=== PATIENT | female | born 1965 | race African-American/Black ===

== ENCOUNTER 2016-12-14 21:12 | Emergency (ER) | payer MEDICARE, OTHER ==
[~2016-12-14] VITALS: Ht 162.6 cm; Wt 49.5 kg
[~2016-12-14 21:12] MED LIST: ADV10050; AMOX1TAB10 PO; ATEN-51; HYDR-3498 PO; LORA-396; TRAM50TA2 PO
[2016-12-14 22:03] VITALS: Ht 162.6 cm; Wt 49.5 kg
[2016-12-14] MEDS ORDERED: ONDANSETRON (ODT) 4 MG TAB ODT STA (23:18)
--- NOTE | 2016-12-14 23:26 | ERD ---
ER Documentation Chief Complaint Date/Time DATE: 12/14/16 TIME: 23:22 Chief Complaint Ear ache and cough x1 week HPI This patient is a 51-year-old female with history of lupus presenting to the emergency department for left ear pain and cough which has been ongoing for 1 week. Additionally the patient got a cut to the outer part of the left ear one day ago. The patient has had some intermittent nausea with vomiting the past 2 days. Patient denies any abdominal pain, diarrhea, constipation, fevers, chills , or other symptoms at this time. ROS All systems reviewed and are negative except as per history of present illness. Medications Home Meds Active Scripts Tramadol HCl (Tramadol HCl) 50 Mg Tablet, 50 MG PO Q6 Y for PAIN, #15 TAB Prov:FARTUN VASQUEZ PA-C 12/15/16 Ciprofloxacin Hcl* (Ciprofloxacin Hcl*) 500 Mg Tablet, 500 MG PO BID, #14 TAB Prov:FARTUN VASQUEZ PA-C 12/15/16 Tramadol HCl (Tramadol HCl) 50 Mg Tablet, 50 MG PO Q4 Y for PAIN, #[address] or operate heavy machinery while taking this medication Prov:CORINA GOLDSTEIN PA-C 09/13/16 Amoxicillin/Potassium Clav (Amox-Clav 875-125 mg Tablet) 875-125 mg Tab, 1 TAB PO BID for 10 Days, #20 TAB Prov:CORINA GOLDSTEIN PA-C 09/13/16 Hydrocodone Bit-Acetaminophen* ([place]*) 5-325 Mg Tab, 1 TAB PO Q6 Y for PAIN, # 7 TAB Prov:DINORA ARCOS 01/05/16 Reported Medications Salmeterol Xinaf/Fluticasone* (Advair 100/50 Diskus*) 1 Inh Inha 12/03/09 Atenolol* (Atenolol*) 25 Mg Tablet 12/03/09 Lorazepam* (Ativan*) 0.5 Mg Tablet 12/03/09 Allergies Allergies: Coded Allergies: aspirin (Verified Allergy, Mild, 12/03/09) Penicillins (Verified Allergy, Unknown, 09/13/16) PMhx/Soc History of Surgery: Yes (left ovary, appendectomy) Hx Neurological Disorder: No Hx Respiratory Disorders: No Hx Cardiac Disorders: No Hx Miscellaneous Medical Probl: Yes (lupus, grave's disease) Hx Alcohol Use: No Hx Substance Use: No Hx Tobacco Use: No Smoking Status: Never smoker FmHx Noncontributory for chief complaint Physical Exam Vitals Vital Signs Date Time Temp Pulse Resp B/P Pulse Ox O2 Delivery O2 Flow Rate FiO2 12/15/16 01:57 98.9 78 20 120/78 98 12/14/16 22:03 97.4 66 24 125/80 98 Physical Exam INITIAL VITAL SIGNS: Reviewed by me. GENERAL: Alert and interactive. No acute distress. The patient had one episode of nonbilious nonbloody vomit during examination. HEAD: Head is normocephalic and atraumatic. EYES: EOMI. No scleral icterus. No conjunctival injection. ENT: Moist mucosa. There is a small superficial laceration to the left external ear. There is crusting and edema to the left external auditory canal. NECK: Supple. Full range of motion. RESPIRATORY: Normal respiratory effort. Clear breath sounds bilaterally. No wheezing, rales, or rhonchi. CV: Regular rate and rhythm. Normal S1 S2. No S3 or S4. No murmurs. ABDOMEN: Soft, non-distended, non-tender. No guarding. No rebound. No masses. EXTREMITIES: No deformity. SKIN: Warm and dry. NEUROLOGIC: Alert and oriented x 4. Speech is normal. Moves all extremities equally. No motor or sensory deficits noted. Results 24 hrs Current Medications Medications (Trade) Dose Ordered Sig/Hector Route PRN Reason Start Time Stop Time Status Last Admin Dose Admin Ondansetron HCl (Zofran Odt) 4 mg ONCE STAT ODT 12/14/16 23:18 12/14/16 23:20 DC 12/14/16 23:44 Ondansetron HCl (Zofran Odt) 4 mg ONCE STAT ODT 12/15/16 00:32 12/15/16 00:35 DC Ondansetron HCl (Zofran Inj) 4 mg ONCE STAT IM 12/15/16 00:33 12/15/16 00:34 DC 12/15/16 00:56 Tramadol HCl (Ultram) 50 mg ONCE ONCE PO 12/15/16 01:30 12/15/16 01:31 DC 12/15/16 01:14 Bacitracin (Bacitracin Oint (Ud)) 1 applic ONCE ONCE TOP 1/25/17 01:30 12/15/16 01:31 DC 12/15/16 01:15 Procedures/MDM EMERGENCY DEPARTMENT COURSE / MEDICAL DECISION MAKING: This is a 51-year-old female who comes to the emergency room secondary to complaints of vomiting, cough, left ear pain. The patient was given p.o. Zofran in the department. On re-evaluation, the patient was feeling improved. The patient tolerated a p.o. fluid challenge. Radiology: Chest x-ray 1 view interpreted by radiologist: PROCEDURE: Chest. CLINICAL INDICATION: Cough. TECHNIQUE: Single frontal view of the chest was obtained. COMPARISON: 01/05/2016. FINDINGS: The cardiac silhouette is within normal limits. The aortic arch is unremarkable. There is no focal consolidation, vascular congestion or pleural effusion. There is no pneumothorax. IMPRESSION: No evidence for active cardiopulmonary disease. The primary diagnosis is vomiting. Secondary diagnosis is otitis externa I have low suspicion for mastoiditis, bronchitis, pneumonia, or other emergencies at this time. Discharge: I have discussed the lab results and diagnostic findings with the patient and answered any questions or concerns. The patient was discharged with a prescription for ciprofloxacin and tramadol. The patient was advised to followup with their PMD in 1-2 days and to return to the Emergency Department if there are any new or worsening symptoms. The patient understood and agreed with the diagnosis, treatment and plan. The patient is stable for discharge at this time. Departure Diagnosis: Primary Impression: Vomiting Additional Impression: Otitis externa Condition: Stable FARTUN VASQUEZ PA-C Dec 14, 2016 23:26
[2016-12-15] MEDS ORDERED: ONDANSETRON (ODT) 4 MG TAB ODT STA (00:32)
[2016-12-15] MEDS ORDERED: ONDANSETRON 4 MG INJ IM STA (00:33)
--- NOTE | 2016-12-15 00:35 | RADRPT ---
PROCEDURE: Chest. CLINICAL INDICATION: Cough. TECHNIQUE: Single frontal view of the chest was obtained. COMPARISON: 01/05/2016. FINDINGS: The cardiac silhouette is within normal limits. The aortic arch is unremarkable. There is no focal consolidation, vascular congestion or pleural effusion. There is no pneumothorax. IMPRESSION: No evidence for active cardiopulmonary disease. .Enrique Mai MD, MD Date Time Electronically viewed and signed by .Enrique Mai MD, on 12/15/2016 00:34 .T/
[2016-12-15] MEDS ORDERED: CIPR500T4 PO (01:09)
[2016-12-15] MEDS ORDERED: TRAM50TA2 PO (01:10)
[2016-12-15] MEDS ORDERED: BACITRACIN 0.9 GM OINT TOP ONE (01:30)
[2016-12-15] MEDS ORDERED: traMADol 50 MG TAB PO ONE (01:30)
[2016-12-15 01:57] VITALS: BP 120/78; PULSE 78; RESP 20; TEMP 98.9
== END 2016-12-15 01:58 | disposition home or self-care (01) ==
LOC: FTE 21:12
DX: R11.10 Vomiting, unspecified (principal); H60.92 Unspecified otitis externa, left ear; S01.312A Laceration without foreign body of left ear, initial encounter; X58.XXXA Exposure to other specified factors, initial encounter; Y92.9 Unspecified place or not applicable
CPT/HCPCS: 71010; J2405; Z7610; 96372

== ENCOUNTER 2017-02-11 22:08 | Inpatient (IN) | payer OTHER ==
[~2017-02-11] VITALS: Ht 165.1 cm; Wt 44.1 kg
[~2017-02-11 22:08] MED LIST changes: +CIPR500T4 PO
[2017-02-11 22:40] VITALS: BP 132/98; PULSE 82; RESP 18
[2017-02-11 22:44] VITALS: Ht 165.1 cm; Wt 44.1 kg
[2017-02-12] MEDS ORDERED: hydrALAzine 20 MG INJ IV PRN
[2017-02-12] MEDS ORDERED: METOCLOPRAMIDE 10 MG INJ IV PRN
[2017-02-12] MEDS ORDERED: TEMAZEPAM 15 MG CAP PO PRN
[2017-02-12] MEDS: HYDROmorphONE 1 MG/ML SYG IV PRN ×4 (00:14→16:08)
[2017-02-12] MEDS: DEXTROSE 5%-0.45% NACL 1,000 ML IV SCH ×3 (00:16→21:48)
[2017-02-12 04:56] LABS: ADD SCAN DIFF NO
[2017-02-12 05:03] LABS: BASOPHILS % 0.2 % (0.0-2.0); EOSINOPHILS % 0.1 % (0.0-7.0); HEMATOCRIT 39.3 % (37.0-47.0); HEMOGLOBIN 13.4 g/dl (12.0-16.0); LYMPHOCYTES # 1.7 10^3/ul (0.8-2.9); LYMPHOCYTES % 17.7 % (15.0-51.0); MEAN CORPUSCULAR HEMOGLOBIN 28.1 pg (29.0-33.0); MEAN CORPUSCULAR HGB CONC 34.1 g/dl (32.0-37.0); MEAN CORPUSCULAR VOLUME 82.4 fl (82.0-101.0); MEAN PLATELET VOLUME 9.5 fl (7.4-10.4); MONOCYTES % 10.6 % (0.0-11.0); NEUTROPHIL # 6.8 10^3/ul (1.6-7.5); PLATELET COUNT 447 10^3/UL (140-415); RED BLOOD COUNT 4.77 10^6/ul (4.20-5.40); RED CELL DISTRIBUTION WIDTH 12.5 % (11.5-14.5); WHITE BLOOD COUNT 9.6 10^3/ul (4.8-10.8)
[2017-02-12 05:24] LABS: POTASSIUM 3.2 mmol/L (3.5-5.1)
[2017-02-12 05:27] LABS: CREATININE 0.51 mg/dl (0.44-1.00)
[2017-02-12 05:28] LABS: CALCIUM 9.5 mg/dl (8.4-10.2)
[2017-02-12] MEDS: PANTOPRAZOLE (EC) 40 MG TAB PO SCH (05:30)
[2017-02-12] MEDS ORDERED: PRED10TA PO (05:41)
[2017-02-12] MEDS ORDERED: HYDR8TAB25 PO (05:41)
[2017-02-12 07:00] VITALS: BP 171/94; RESP 20
[2017-02-12 09:00] VITALS: BP 140/70; PULSE 88
[2017-02-12] MEDS ORDERED: HYDROmorphONE 1 MG/ML SYG IV STA ×3 (10:53→19:03)
--- NOTE | 2017-02-12 11:16 | HP ---
Date/Time of Note Date/Time of Note DATE: 02/12/17 TIME: 11:08 Assessment/Plan VTE Prophylaxis VTE Prophylaxis Intervention: SCD's Lines/Catheters IV [facility]from [facility] [place] Urinary Cath still in place: No Assessment/Plan Chief Complaint/Hosp Course 1. Systemic Lupus, exacerbation 2. Noncompliance 3. Chronic pain 4. Insomnia Problems: Assessment/Plan 1. Hydration 2. DVT prophylaxis. 3. Steroids 4. PAin control HPI/ROS Admit Date/Time Admit Date/Time Feb 11, 2017 at 22:08 Hx of Present Illness 51 years old female, has history of lupus, was transfered from [facility] for lupus exacerbation. She is non compliant for her medications ROS Constitutional: fatigue, nausea, poor po Eyes: no complaints ENT: no complaints Respiratory: no complaints Cardiovascular: no complaints Gastrointestinal: decreased appetite, nausea Genitourinary: no complaints Musculoskeletal: bone/joint pain Skin: bruising Neurologic: dizziness, headache Endocrine: dry skin, no complaints Lymphatic: no complaints Psychological: depression PMH/Family/Social Past Medical History Medical History: other (lupus) Past Surgical History Past Surgical Hx: no surgical history Family History Significant Family History: no pertinent family hx Social History Alcohol Use: none Smoking Status: Never smoker Drug Use: none Exam/Review of Systems Vital Signs Vitals Vital Signs Date Time Temp Pulse Resp B/P Pulse Ox O2 Delivery O2 Flow Rate FiO2 02/12/17 07:00 98.7 53 20 171/94 98 02/11/17 22:40 Room Air Intake and Output 02/11/17 02/11/17 02/12/17 15:00 23:00 07:00 Intake Total 590 ml Output Total 700 ml Balance -110 ml Exam Constitutional: alert, distress, oriented Psych: no complaints Head: normocephalic Eyes: nl conjunctiva ENMT: nl external ears & nose Neck: supple Respiratory: clear to auscultation Cardiovascular: regular rate and rhythm Gastrointestinal: tender Musculoskeletal: muscle weakness, swelling Extremities: normal pulses Neurological: BINGO USHER II-XII intact Skin: nl turgor Lymph: nl lymph nodes Labs Result Diagram: 02/12/17 0439 02/12/17 0439 Medications Medications Current Medications Enoxaparin Sodium (Lovenox) 40 mg DAILY SC ; Start 02/12/17 at 09:00 Methylprednisolone Sodium Succinate (Solu-Medrol) 40 mg DAILY IV ; Start at 09:00 Amlodipine Besylate (Norvasc) 5 mg DAILY PO ; Start 02/12/17 at 09:00 Pantoprazole 40 mg 40 mg DAILY@06 PO Last administered on 02/12/17 05:30; Admin Dose 40 MG; Start 02/12/17 at 06:00 Dextrose/Sodium Chloride (D5-1/2ns) 1,000 ml @ 75 mls/hr [id number] IV Last administered on 02/12/17 00:16; Admin Dose 75 MLS/HR; Start 02/12/17 at 00:00 Ondansetron HCl (Zofran Inj) 4 mg Q6H PRN IV NAUSEA AND/OR VOMITING; Start at 00:00 Clonidine (Catapres) 0.1 mg Q6H PRN PO for SBP>160; Start 02/12/17 at 00:00 Temazepam (Restoril) 15 mg HS PRN PO SLEEP; Start 02/12/17 at 00:00 Metoclopramide HCl (Reglan) 5 mg Q6H PRN IV NAUSEA AND VOMITING; Start at 00:00 Hydralazine HCl (Apresoline) 10 mg Q6H PRN IV SBP>150 AND DBP>90; Start at 00:00 Hydromorphone HCl (Dilaudid) 1 mg Q3H PRN IV PAIN; Start 02/12/17 at 14:00 Procedures Procedures none SHAGGY ALVAREZ 25, 2017 11:16
[2017-02-12] MEDS: METHYLPREDNISOLONE 40 MG INJ IV SCH (11:25)
[2017-02-12] MEDS: AMLODIPINE 5 MG TAB PO SCH (11:25)
[2017-02-12] MEDS: ENOXAPARIN 40 MG/0.4 ML SYG SC SCH (11:30)
[2017-02-12] MEDS ORDERED: HYDROmorphONE 1 MG/ML SYG IV PRN (14:00)
[2017-02-12] MEDS ORDERED: HYDROCODONE/APAP (5/325) TAB PO PRN (16:30)
[2017-02-12] MEDS ORDERED: POTASSIUM CHLORIDE 250 ML IVPB ONE (17:30)
[2017-02-12 18:00] VITALS: BP 117/84; RESP 18
[2017-02-12] MEDS ORDERED: HYDROmorphONE 1 MG/ML SYG IM STA (18:26)
[2017-02-12] MEDS ORDERED: HYDROmorphONE 4 MG TAB PO SCH (21:00)
[2017-02-12] MEDS ORDERED: IBUPROFEN 600 MG TAB PO SCH (21:00)
[2017-02-12] MEDS: HYDROmorphONE 2 MG/ML SYG IV PRN (21:48)
[2017-02-13] MEDS: HYDROmorphONE 2 MG/ML SYG IV PRN ×7 (00:54→21:11)
[2017-02-13 05:01] LABS: ADD SCAN DIFF NO
[2017-02-13] MEDS: PANTOPRAZOLE (EC) 40 MG TAB PO SCH (05:08)
[2017-02-13 05:14] LABS: POTASSIUM 4.1 mmol/L (3.5-5.1)
[2017-02-13 05:16] LABS: BASOPHILS % 0.1 % (0.0-2.0); CREATININE 0.5 mg/dl (0.44-1.00); EOSINOPHILS % 0.3 % (0.0-7.0); HEMATOCRIT 36.1 % (37.0-47.0); HEMOGLOBIN 12.3 g/dl (12.0-16.0); LYMPHOCYTES # 3.4 10^3/ul (0.8-2.9); LYMPHOCYTES % 35.2 % (15.0-51.0); MEAN CORPUSCULAR HEMOGLOBIN 28.2 pg (29.0-33.0); MEAN CORPUSCULAR HGB CONC 34.1 g/dl (32.0-37.0); MEAN CORPUSCULAR VOLUME 82.8 fl (82.0-101.0); MEAN PLATELET VOLUME 9.4 fl (7.4-10.4); MONOCYTE # 1.1 10^3/ul (0.3-0.9); MONOCYTES % 10.8 % (0.0-11.0); NEUTROPHIL # 5.2 10^3/ul (1.6-7.5); NEUTROPHILS % 53.4 % (39.0-77.0); PLATELET COUNT 387 10^3/UL (140-415); RED BLOOD COUNT 4.36 10^6/ul (4.20-5.40); RED CELL DISTRIBUTION WIDTH 12.4 % (11.5-14.5); WHITE BLOOD COUNT 9.7 10^3/ul (4.8-10.8)
[2017-02-13 05:17] LABS: CALCIUM 9.3 mg/dl (8.4-10.2)
[2017-02-13 08:07] VITALS: BP 135/92; RESP 20
[2017-02-13] MEDS: METHYLPREDNISOLONE 40 MG INJ IV SCH (10:21)
[2017-02-13] MEDS: AMLODIPINE 5 MG TAB PO SCH (10:23)
[2017-02-13] MEDS: ENOXAPARIN 40 MG/0.4 ML SYG SC SCH (10:24)
[2017-02-13] MEDS: DEXTROSE 5%-0.45% NACL 1,000 ML IV SCH (10:30)
--- NOTE | 2017-02-13 16:39 | PN ---
Date/Time of Note Date/Time of Note DATE: 02/13/17 TIME: 16:38 Assessment/Plan VTE Prophylaxis VTE Prophylaxis Intervention: other Lines/Catheters IV Catheter Type (from Nrsg): Peripheral IV Urinary Cath still in place: No Assessment/Plan Chief Complaint/Hosp Course 1. Systemic Lupus, exacerbation 2. Noncompliance 3. Chronic pain 4. Insomnia Problems: PAIN MED PT OT Problems: Subjective 24 Hr Interval Summary Subjective hx not possible: other (PAIN IS BETTER) Cardiovascular: no complaints Gastrointestinal: no complaints Exam/Review of Systems Vital Signs Vitals Vital Signs Date Time Temp Pulse Resp B/P Pulse Ox O2 Delivery O2 Flow Rate FiO2 02/13/17 08:07 98.4 60 20 135/92 98 02/11/17 22:40 Room Air Intake and Output 02/12/17 02/12/17 02/13/17 15:00 23:00 07:00 Intake Total 1660 ml 1145 ml Balance 1660 ml 1145 ml Exam Respiratory: clear to auscultation Cardiovascular: regular rate and rhythm Gastrointestinal: soft Musculoskeletal: nl extremities to inspection Results Result Diagram: 02/13/17 0435 02/13/17 0435 Results 24 hrs Laboratory Tests Test 02/13/17 04:35 White Blood Count 9.7 Red Blood Count 4.36 Hemoglobin 12.3 Hematocrit 36.1 L Mean Corpuscular Volume 82.8 Mean Corpuscular Hemoglobin 28.2 L Mean Corpuscular Hemoglobin Concent 34.1 Red Cell Distribution Width 12.4 Platelet Count 387 Mean Platelet Volume 9.4 Neutrophils % 53.4 Lymphocytes % 35.2 Monocytes % 10.8 Eosinophils % 0.3 Basophils % 0.1 Nucleated Red Blood Cells % 0.0 Neutrophils # 5.2 Lymphocytes # 3.4 H Monocytes # 1.1 H Eosinophils # 0.0 Basophils # 0.0 Nucleated Red Blood Cells # 0.0 Sodium Level 130 L Potassium Level 4.1 Chloride Level 97 Carbon Dioxide Level 26 Anion Gap 11 Blood Urea Nitrogen 9 Creatinine 0.50 Glucose Level 116 Calcium Level 9.3 Medications Medications Current Medications Enoxaparin Sodium (Lovenox) 40 mg DAILY SC Last administered on 02/13/17 10:24 ; Admin Dose 40 MG; Start 02/12/17 at 09:00 Methylprednisolone Sodium Succinate (Solu-Medrol) 40 mg DAILY IV Last administered on 02/13/17 10:21; Admin Dose 40 MG; Start 02/12/17 at 09:00 Amlodipine Besylate (Norvasc) 5 mg DAILY PO Last administered on 02/13/17 10: 23; Admin Dose 5 MG; Start 02/12/17 at 09:00 Pantoprazole 40 mg 40 mg DAILY@06 PO Last administered on 02/13/17 05:08; Admin Dose 40 MG; Start 02/12/17 at 06:00 Dextrose/Sodium Chloride (D5-1/2ns) 1,000 ml @ 75 mls/hr [id number] IV Last administered on 02/13/17 10:30; Admin Dose 75 MLS/HR; Start 02/12/17 at 00:00 Ondansetron HCl (Zofran Inj) 4 mg Q6H PRN IV NAUSEA AND/OR VOMITING; Start at 00:00 Clonidine (Catapres) 0.1 mg Q6H PRN PO for SBP>160; Start 02/12/17 at 00:00 Temazepam (Restoril) 15 mg HS PRN PO SLEEP; Start 02/12/17 at 00:00 Metoclopramide HCl (Reglan) 5 mg Q6H PRN IV NAUSEA AND VOMITING; Start at 00:00 Hydralazine HCl (Apresoline) 10 mg Q6H PRN IV SBP>150 AND DBP>90; Start at 00:00 Acetaminophen/ Hydrocodone Bitart ([place] (5/325)) 1 tab Q4H PRN PO PAIN LEVEL 1 -5; Start 02/12/17 at 16:30 Hydromorphone HCl (Dilaudid) 1.5 mg Q3 PRN IV PAIN Last administered on 14:34; Admin Dose 1.5 MG; Start 02/12/17 at 22:00 Hydromorphone HCl (Dilaudid) 4 mg Q8 PO ; Start 02/13/17 at 22:00 LAKIA SEYMOUR MD Feb 13, 2017 16:39
[2017-02-13] MEDS: SOD CHLORIDE 0.9% 1,000 ML IV SCH (20:17)
[2017-02-13 20:20] VITALS: BP 100/77; RESP 16
[2017-02-13] MEDS: HYDROmorphONE 4 MG TAB PO SCH (21:59)
[2017-02-14] MEDS: HYDROmorphONE 2 MG/ML SYG IV PRN ×7 (00:42→22:09)
[2017-02-14] MEDS: PANTOPRAZOLE (EC) 40 MG TAB PO SCH (05:44)
[2017-02-14] MEDS: HYDROmorphONE 4 MG TAB PO SCH ×3 (05:44→22:06)
[2017-02-14 07:50] VITALS: BP 102/87; RESP 19
[2017-02-14] MEDS: AMLODIPINE 5 MG TAB PO SCH (08:00)
[2017-02-14] MEDS: ENOXAPARIN 40 MG/0.4 ML SYG SC SCH (08:06)
[2017-02-14] MEDS: METHYLPREDNISOLONE 40 MG INJ IV SCH (08:08)
--- NOTE | 2017-02-14 18:48 | PN ---
Date/Time of Note Date/Time of Note DATE: 02/14/17 TIME: 18:47 Assessment/Plan VTE Prophylaxis VTE Prophylaxis Intervention: other Lines/Catheters IV Catheter Type (from Nrsg): Peripheral IV Urinary Cath still in place: No Assessment/Plan Chief Complaint/Hosp Course 1. Systemic Lupus, hx 2. Noncompliance 3. Chronic pain 4. Insomnia Problems: PAIN MED PT OT snf Problems: Subjective 24 Hr Interval Summary Subjective hx not possible: pt critical (khphosis), other (weakness) Exam/Review of Systems Vital Signs Vitals Vital Signs Date Time Temp Pulse Resp B/P Pulse Ox O2 Delivery O2 Flow Rate FiO2 02/14/17 07:50 97.8 69 19 102/87 99 02/11/17 22:40 Room Air Intake and Output 02/13/17 02/13/17 02/14/17 15:00 23:00 07:00 Intake Total 525 ml 2050 ml 1060 ml Output Total 650 ml 450 ml Balance 525 ml 1400 ml 610 ml Exam Respiratory: clear to auscultation Cardiovascular: regular rate and rhythm Gastrointestinal: soft Musculoskeletal: muscle weakness, range of motion (pain), spine non-tender Results Result Diagram: 02/13/17 0435 02/13/17 0435 Medications Medications Current Medications Enoxaparin Sodium (Lovenox) 40 mg DAILY SC Last administered on 02/14/17 08:06 ; Admin Dose 40 MG; Start 02/12/17 at 09:00 Methylprednisolone Sodium Succinate (Solu-Medrol) 40 mg DAILY IV Last administered on 02/14/17 08:08; Admin Dose 40 MG; Start 02/12/17 at 09:00 Amlodipine Besylate (Norvasc) 5 mg DAILY PO Last administered on 02/14/17 08: 00; Admin Dose 5 MG; Start 02/12/17 at 09:00 Pantoprazole (Protonix Tab) 40 mg DAILY@06 PO Last administered on 02/14/17 05 :44; Admin Dose 40 MG; Start 02/12/17 at 06:00 Ondansetron HCl (Zofran Inj) 4 mg Q6H PRN IV NAUSEA AND/OR VOMITING; Start at 00:00 Clonidine (Catapres) 0.1 mg Q6H PRN PO for SBP>160; Start 02/12/17 at 00:00 Temazepam (Restoril) 15 mg HS PRN PO SLEEP; Start 02/12/17 at 00:00 Metoclopramide HCl (Reglan) 5 mg Q6H PRN IV NAUSEA AND VOMITING Last administered on 02/13/17 18:07; Admin Dose 5 MG; Start 02/12/17 at 00:00 Hydralazine HCl (Apresoline) 10 mg Q6H PRN IV SBP>150 AND DBP>90; Start at 00:00 Acetaminophen/ Hydrocodone Bitart ([place] (5/325)) 1 tab Q4H PRN PO PAIN LEVEL 1 -5; Start 02/12/17 at 16:30 Hydromorphone HCl (Dilaudid) 1.5 mg Q3 PRN IV PAIN Last administered on 15:16; Admin Dose 1.5 MG; Start 02/12/17 at 22:00 Hydromorphone HCl 4 mg 4 mg Q8 PO Last administered on 02/14/17 13:54; Admin Dose 4 MG; Start 02/13/17 at 22:00 Sodium Chloride (NS) 1,000 ml @ 50 mls/hr Q20H IV Last administered on 20:17; Admin Dose 20 MLS/HR; Start 02/13/17 at 20:00 LAKIA SEYMOUR MD Feb 14, 2017 18:48
[2017-02-14] MEDS: ONDANSETRON 4 MG INJ IV PRN (18:50)
[2017-02-14 19:42] VITALS: BP 99/71; RESP 18
[2017-02-14] MEDS: SOD CHLORIDE 0.9% 1,000 ML IV SCH (20:00)
[2017-02-14 20:18] LABS: C-REACTIVE PROTEIN < 0.5 mg/dl (0.0-0.9)
[2017-02-14 22:36] LABS: COMPLEMENT C3 92 mg/dl (88-165)
[2017-02-14 22:37] LABS: COMPLEMENT C4 18 mg/dl (14-44)
[2017-02-15] MEDS: HYDROmorphONE 2 MG/ML SYG IV PRN ×7 (01:32→23:18)
[2017-02-15] MEDS: HYDROmorphONE 4 MG TAB PO SCH ×3 (06:21→21:40)
[2017-02-15] MEDS: PANTOPRAZOLE (EC) 40 MG TAB PO SCH (06:21)
[2017-02-15 06:52] LABS: ALBUMIN 3.5 g/dl (3.3-4.9); POTASSIUM 3.9 mmol/L (3.5-5.1)
[2017-02-15 06:54] LABS: CREATININE 0.52 mg/dl (0.44-1.00)
[2017-02-15 06:55] LABS: ALBUMIN/GLOBULIN RATIO 1.2; BILIRUBIN,INDIRECT 0.1 mg/dl (0-1.1); BILIRUBIN,TOTAL 0.1 mg/dl (0.2-1.3); TOTAL PROTEIN 6.4 g/dl (6.1-8.1)
[2017-02-15] MEDS: METHYLPREDNISOLONE 40 MG INJ IV SCH (08:01)
[2017-02-15] MEDS: AMLODIPINE 5 MG TAB PO SCH (08:02)
[2017-02-15] MEDS: ENOXAPARIN 40 MG/0.4 ML SYG SC SCH (08:04)
[2017-02-15 08:47] VITALS: BP 105/72; RESP 16
[2017-02-15] MEDS: oxyCODONE 5 MG TAB PO SCH ×2 (09:59→20:30)
[2017-02-15] MEDS: SOD CHLORIDE 0.9% 1,000 ML IV SCH (09:59)
--- NOTE | 2017-02-15 11:40 | CONS ---
DATE OF ADMISSION: 02/11/2017 DATE OF CONSULTATION: 02/15/2017 REFERRING PHYSICIAN: Yoan Qiu MD HISTORY OF PRESENT ILLNESS: This is a 51-year-old female who has a history of systemic lupus and ch ronic pain syndrome. According to her medical records, she is noncompliant with her medications, al though she tells me she ran out of her medications approximately 1 week prior to this hospitalizatio n. Her pain accelerated so much so that she was unable to tolerate it. She is a poor historian and to the best of her knowledge, she has not had any secondary side effects from the lupus and primari ly has joint discomfort associate with it. She described extreme pain in her lumbosacral spine, claudine ateral hands without radiation. It is associated with morning stiffness, describes as a lancinating and a throbbing type discomfort in both her bilateral wrists. There is no past medical history o f drug, smoking, family history of serious major medical problems. States that the Dilaudid has wor ked well for her in the past in the existing dosage, which is 8 mg 3 times a day. She is being seen by a pain management physician in the community, but has not seen him since her medical insurance h as changed. Secondary pain is lumbosacral spine discomfort which she describes as a pinching type o f discomfort, lancinating into her right lower extremity. States that her right foot is numb. Ther e is no past medical history of trauma associated with it. Radiations are as above. The Dilaudid d oes alleviate her discomfort for an extended period of time. That medication was also prescribed to her by her pain management doctor in the community. Once again, there is no history of drug use, a buse. She has carried a diagnosis of lupus for many, many years prior to this hospitalization. In reviewing her medical record, her pain is under good control when she receives steroids upon admissi on and she has been started off on Solu-Medrol. MEDICATIONS: Please refer to reconciliation sheets. ALLERGIES: 1. PENICILLIN. 2. ASPIRIN. SOCIAL HISTORY: According to medical records, she is a nonsmoker, nondrinker. FAMILY HISTORY: Nonpertinent to this hospitalization. REVIEW OF SYSTEMS: A 12-point review of systems otherwise unremarkable except which is as per histo ry of present illness. PHYSICAL EXAMINATION: GENERAL: Shows an uncomfortable-appearing female who is moaning and groaning. VITAL SIGNS: Blood pressure 99/71, pulse of 64 and regular, respirations of 18, temperature of 98.6 degrees, 94% saturation on room air. HEENT: She is normocephalic and atraumatic. Anicteric, acyanotic. CHEST: Left lung is clear. Right lung basilar crackles. COR: S1, S2, without S3, S4, murmur, gallop, rub. Normal rate, normal rhythm on examination. ABDOMEN: Grossly benign. NEUROLOGIC: Nonfocal. LABORATORY DATA: White blood cell count on 02/13/2017 of 9.7, hemoglobin level of 12.3, hematocrit of 36.1, MCV of 82.8, platelet count of 387,000. Chemistries: Serum sodium 129, potassium 3.9, chl oride 94, bicarbonate 27, BUN 11, creatinine 0.52. There is no new chest x-ray which have been ordered. ASSESSMENT AND PLAN: This lady who has systemic lupus, who ran out of her medications approximately 1 week prior to this hospitalization. She has been treated with pulse doses of corticosteroids. S he is on a Dilaudid 4 mg q.8h. I will stop the [place]. There is a high incidence of tolerance to th is medication as an outpatient and she is going to require long-term pain control. It is difficult to prescribe a short-acting Dilaudid that she is receiving right now as this has a short half life a nd is being prescribed right now at q.8h, although I suspect there was no other alternative due to [facility] insurance issues as an outpatient. Therefore, I think that this was the only option. I will begin her on a long-acting opioid consisting of OxyContin at low dose. I will explain to her the ri sks and the possible side effects associated with this medication. She will need to have close foll owup by her primary care, pain management doctor in the community. Her medical records will be sent with her upon discharge. Dictated By: SAVANNAH TRINH MD, LP/OPAL Conf#: [id number] DID#: [id number]
[2017-02-15] MEDS: ONDANSETRON 4 MG INJ IV PRN (14:26)
--- NOTE | 2017-02-15 14:39 | CONS ---
DATE OF ADMISSION: 02/11/2017 DATE OF CONSULTATION: RHEUMATOLOGY CONSULTATION HISTORY OF PRESENT ILLNESS: The patient is a 51-year-old woman with an apparent hi story of systemic lupus as well as chronic pain. The patient is a very poor historian. Apparently, she has been on chronic prednisone at about 10 mg daily per day as well as narcotic pain medication s for various pains. She describes that the lupus manifested primarily as discoid rash lesions, but she also has had diffuse aches; unclear if actual joint swelling. Denies renal involvement or othe r major organ involvement. The patient apparently stopped her medications about a week prior to adm ission. She apparently lost them and she has had increased diffuse myalgias and possible muscle wea kness. She complains primarily of low back pain. She feels she is unable to stand up erect due to the low back pain. She may have some numbness radiating down the left leg as well. Again, the maria t ent is a poor historian. Apparently, she feels better with the prednisone. She has a history of ph otosensitivity, some alopecia and chronic fatigue. MEDICATIONS: Prior to admission unclear. At present, on several days of Solu-Medrol 40 mg daily as well as narcotic medication. The patient is feeling overall better, but continues to have pain or general weakness in the lower back. ALLERGIES: 1. PENICILLIN. 2. ASPIRIN. SOCIAL HISTORY: The patient denies illicit drug use, denies smoking, denies alcohol use. REVIEW OF SYSTEMS: Negative for chest pain or shortness of breath or palpitations. At present, she has some diffuse abdominal aches. Denies dysuria or increased frequency. Denies fever. Denies he adaches. PAST MEDICAL HISTORY: 1. Positive for lupus per patient. 2. Chronic pain. 3. History of Graves disease. She states that her thyroid has been normal lately, but she has a go iter. PHYSICAL EXAMINATION: GENERAL: Well-developed, thin woman in no acute distress, alert, appears somewhat confused. SKIN: With multiple scaly, nonerythematous patches at the legs and scalp and several at the forearm s. HEENT: Without acute lesions. NECK: Possible thyromegaly; no lymphadenopathy noted. CHEST: Clear to A and P. HEART: Regular rate and rhythm without gallops or murmurs noted. ABDOMEN: Diffusely mildly tender. No rebound tenderness. No masses. EXTREMITIES: Joints without synovitis. Mild tenderness at the lower back; otherwise without defini te tenderness. NEUROLOGIC: With good proximal and distal muscle strength. Sensation grossly normal. LABORATORY STUDIES: Noted, including a normal white count, no or minimal anemia, creatinine 0.52. Normal liver function tests. C-reactive protein negative yesterday. Globulin normal. Complement C 3 and C4 within normal limits. Rheumatoid factor negative. ASSESSMENT: 1. Lupus. Unclear how truly active it is. There is no evidence of synovitis. The rash does not a ppear acutely active and no evidence of major organ involvement such as renal. Complement is normal . No significant anemia. White count normal (although on steroids.) 2. Chronic pain. 3. Low back pain. Unclear if spinal process in view of her inability to stand upright. Would rule out possible vertebral fracture from osteoporosis or other etiology. PLAN: 1. Will obtain additional laboratory studies. 2. Will obtain x-ray of the lumbar spine. 3. Would go back to 10 mg of prednisone daily at this point. Thank you for having me see the patient rheumatologically. Will follow. Dictated By: ALIZE ARORA/OPAL Conf#: [id number] DID#: [id number]
--- NOTE | 2017-02-15 16:59 | RADRPT ---
PROCEDURE: XR Lumbar Spine. CLINICAL INDICATION: Lumbar spine pain. TECHNIQUE: AP, lateral, bilateral oblique and cone-down lateral view of the lumbar spine were obta ined. COMPARISON: No prior studies are available for comparison. FINDINGS: There is transitional anatomy with sacralization of the L5 vertebral body and well formed discs betw een L5 and S1. There are anterior osteophytes from L2-L5 with mild narrowing of the intervertebral disc spaces at L3-4 and L4-5. There are mild associated discogenic endplate changes at these levels . There is a 10% anterior wedging of the L1 vertebral body, age indeterminate. No prior examination s are available. The remaining vertebral body heights are maintained. The marrow density is within normal limits. There is moderate facet spondylosis at L3-4 and L4-5 with suggestion of neural fora anna narrowing at L4-5. The remaining neural foramina appear patent. The paraspinal soft tissues unremarkable. There is no evidence of fracture. The oblique views demonstrate intact pars interart icularis. IMPRESSION: 1. Mild degenerative disc disease at L3-4 and L4-5. 2. Moderate facet spondylosis at L3-4 and L4-5 with suggestion of neural foraminal narrowing at L4- 5. 3. 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 4. Chronic-appearing 10% anterior wedging of the L1 vertebral body. If clinical concern for acute fracture, CT may be helpful for further evaluation.. RPTAT: HGAS .Ulysses Moore MD, Date Time Electronically viewed and signed by .Ulysses Moore MD, on 02/15/2017 16:58 .S/
--- NOTE | 2017-02-15 18:34 | PN ---
Date/Time of Note Date/Time of Note DATE: 02/15/17 TIME: 18:32 Assessment/Plan VTE Prophylaxis VTE Prophylaxis Intervention: other Lines/Catheters IV Catheter Type (from Nrsg): Peripheral IV Urinary Cath still in place: No Assessment/Plan Chief Complaint/Hosp Course 1. Systemic Lupus, hx 2. Noncompliance 3. Chronic pain 4. Insomnia 5 hyponatrenia Problems: PAIN MED PT OT snf iv saline per dr baxter Problems: Subjective 24 Hr Interval Summary Genitourinary: no complaints Musculoskeletal: restricted range of motion (pain) Exam/Review of Systems Vital Signs Vitals Vital Signs Date Time Temp Pulse Resp B/P Pulse Ox O2 Delivery O2 Flow Rate FiO2 02/15/17 08:47 98.4 53 16 105/72 99 02/11/17 22:40 Room Air Intake and Output 02/14/17 02/14/17 02/15/17 15:00 23:00 07:00 Intake Total 700 ml 1840 ml Output Total 900 ml 2400 ml Balance -200 ml -560 ml Exam Respiratory: clear to auscultation Cardiovascular: regular rate and rhythm Gastrointestinal: soft Musculoskeletal: muscle weakness (positive), nl extremities to inspection Extremities: normal pulses Results Result Diagram: 02/13/17 0435 02/15/17 0425 Results 24 hrs Laboratory Tests Test 02/14/17 19:30 02/15/17 04:25 C-Reactive Protein < 0.5 Complement C3 92 Complement C4 18 Sodium Level 129 L Potassium Level 3.9 Chloride Level 94 L Carbon Dioxide Level 27 Anion Gap 12 Blood Urea Nitrogen 11 Creatinine 0.52 Glucose Level 82 Calcium Level 9.0 Total Bilirubin 0.1 L Direct Bilirubin 0.00 Indirect Bilirubin 0.1 Aspartate Amino Transf (AST/SGOT) 15 Alanine Aminotransferase (ALT/SGPT) 21 Alkaline Phosphatase 51 Total Protein 6.4 Albumin 3.5 Globulin 2.90 Albumin/Globulin Ratio 1.20 Medications Medications Current Medications Enoxaparin Sodium (Lovenox) 40 mg DAILY SC Last administered on 02/15/17 08:04 ; Admin Dose 40 MG; Start 02/12/17 at 09:00 Amlodipine Besylate (Norvasc) 5 mg DAILY PO Last administered on 02/15/17 08: 02; Admin Dose 5 MG; Start 02/12/17 at 09:00 Pantoprazole (Protonix Tab) 40 mg DAILY@06 PO Last administered on 02/15/17 06 :21; Admin Dose 40 MG; Start 02/12/17 at 06:00 Ondansetron HCl (Zofran Inj) 4 mg Q6H PRN IV NAUSEA AND/OR VOMITING Last administered on 02/15/17 14:26; Admin Dose 4 MG; Start 02/12/17 at 00:00 Clonidine (Catapres) 0.1 mg Q6H PRN PO for SBP>160; Start 02/12/17 at 00:00 Temazepam (Restoril) 15 mg HS PRN PO SLEEP; Start 02/12/17 at 00:00 Metoclopramide HCl (Reglan) 5 mg Q6H PRN IV NAUSEA AND VOMITING Last administered on 02/13/17 18:07; Admin Dose 5 MG; Start 02/12/17 at 00:00 Hydralazine HCl (Apresoline) 10 mg Q6H PRN IV SBP>150 AND DBP>90; Start at 00:00 Acetaminophen/ Hydrocodone Bitart ([place] (5/325)) 1 tab Q4H PRN PO PAIN LEVEL 1 -5; Start 02/12/17 at 16:30 Hydromorphone HCl (Dilaudid) 1.5 mg Q3 PRN IV PAIN Last administered on 15:54; Admin Dose 1.5 MG; Start 02/12/17 at 22:00 Hydromorphone HCl 4 mg 4 mg Q8 PO Last administered on 02/15/17 14:26; Admin Dose 4 MG; Start 02/13/17 at 22:00 Sodium Chloride (NS) 1,000 ml @ 50 mls/hr Q20H IV Last administered on 09:59; Admin Dose 50 MLS/HR; Start 02/13/17 at 20:00 Oxycodone HCl (Roxicodone) 5 mg BID PO Last administered on 02/15/17 09:59; Admin Dose 5 MG; Start 02/15/17 at 09:00 Prednisone (Prednisone) 10 mg DAILY PO ; Start 02/16/17 at 09:00 LAKIA SEYMOUR MD Feb 15, 2017 18:34
[2017-02-15 19:35] VITALS: BP 120/85; PULSE 64; RESP 18
[2017-02-15 22:08] LABS: ADD UMIC YES; URINE BILIRUBIN (Dip) NEGATIVE (NEGATIVE); URINE BLOOD (Dip) NEGATIVE (NEGATIVE); URINE COLOR LT. YELLOW (YELLOW); URINE GLUCOSE (Dip) NEGATIVE (NEGATIVE); URINE KETONES (Dip) NEGATIVE (NEGATIVE); URINE LEUKOCYTE ESTERASE (Dip) TRACE (NEGATIVE); URINE NITRITE (Dip) NEGATIVE (NEGATIVE); URINE TOTAL PROTEIN (Dip) NEGATIVE (NEGATIVE); URINE UROBILINOGEN (Dip) 1.0 E.U./dL (0.1-1.0)
[2017-02-15 22:39] LABS: SQUAMOUS EPITHELIAL CELL,UR RARE; URINE RBCS NONE SEEN /HPF (0)
[2017-02-16] MEDS: HYDROmorphONE 2 MG/ML SYG IV PRN ×7 (02:22→23:33)
[2017-02-16 05:27] LABS: POTASSIUM 3.9 mmol/L (3.5-5.1)
[2017-02-16 05:30] LABS: CREATININE 0.54 mg/dl (0.44-1.00)
[2017-02-16 05:31] LABS: CALCIUM 9.2 mg/dl (8.4-10.2)
[2017-02-16] MEDS: HYDROmorphONE 4 MG TAB PO SCH ×3 (05:40→21:43)
[2017-02-16] MEDS: PANTOPRAZOLE (EC) 40 MG TAB PO SCH (05:40)
[2017-02-16 08:04] VITALS: BP 145/104; RESP 16
[2017-02-16] MEDS ORDERED: predniSONE 10 MG TAB PO SCH (09:00)
[2017-02-16] MEDS: AMLODIPINE 5 MG TAB PO SCH (09:04)
[2017-02-16] MEDS: predniSONE 10 MG TAB PO SCH (09:04)
[2017-02-16] MEDS: oxyCODONE 5 MG TAB PO SCH ×2 (09:05→21:13)
[2017-02-16] MEDS: ENOXAPARIN 40 MG/0.4 ML SYG SC SCH (09:09)
[2017-02-16] MEDS: SOD CHLORIDE 0.9% 1,000 ML IV SCH (11:21)
--- NOTE | 2017-02-16 13:50 | CONS ---
Date/Time of Note Date/Time of Note DATE: 02/16/17 TIME: 13:45 Consult Date/Type/Reason Admit Date/Time Feb 11, 2017 at 22:08 Initial Consult Date Type of Consultation: Rheum Subjective Back feels a little better. No new complaints. Objective Vital Signs Date Time Temp Pulse Resp B/P Pulse Ox O2 Delivery O2 Flow Rate FiO2 02/16/17 08:04 98.3 65 16 145/104 99 02/15/17 19:35 Room Air Intake and Output 02/15/17 02/15/17 02/16/17 15:00 23:00 07:00 Intake Total 1500 ml 1700 ml Output Total 1400 ml 1200 ml Balance 100 ml 500 ml Exam Alert, oriented Skin with several scaly patches at legs , arms and scalp, without erythema. HEENT without acute findings Chest Clear Heart RRR Abd Soft. MS No synovitis. Results/Medications Result Diagram: 02/13/17 0435 02/16/17 0420 Results 24 hrs Laboratory Tests Test 02/15/17 16:30 02/16/17 04:20 Urine Color LT. YELLOW Urine Clarity CLEAR Urine pH 7.5 Urine Specific [place] 1.010 Urine Ketones NEGATIVE Urine Nitrite NEGATIVE Urine Bilirubin NEGATIVE Urine Urobilinogen 1.0 E.U./dL Urine Leukocyte Esterase TRACE H Urine Microscopic RBC NONE SEEN Urine Microscopic WBC 0-2 Urine Squamous Epithelial Cells RARE Urine Hemoglobin NEGATIVE Urine Glucose NEGATIVE Urine Total Protein NEGATIVE Sodium Level 130 L Potassium Level 3.9 Chloride Level 96 L Carbon Dioxide Level 27 Anion Gap 11 Blood Urea Nitrogen 11 Creatinine 0.54 Glucose Level 96 Calcium Level 9.2 Medications Current Medications Enoxaparin Sodium (Lovenox) 40 mg DAILY SC Last administered on 02/16/17 09:09 ; Admin Dose 40 MG; Start 02/12/17 at 09:00 Amlodipine Besylate (Norvasc) 5 mg DAILY PO Last administered on 02/16/17 09: 04; Admin Dose 5 MG; Start 02/12/17 at 09:00 Pantoprazole (Protonix Tab) 40 mg DAILY@06 PO Last administered on 02/16/17 05 :40; Admin Dose 40 MG; Start 02/12/17 at 06:00 Ondansetron HCl (Zofran Inj) 4 mg Q6H PRN IV NAUSEA AND/OR VOMITING Last administered on 02/15/17 14:26; Admin Dose 4 MG; Start 02/12/17 at 00:00 Clonidine (Catapres) 0.1 mg Q6H PRN PO for SBP>160; Start 02/12/17 at 00:00 Temazepam (Restoril) 15 mg HS PRN PO SLEEP; Start 02/12/17 at 00:00 Metoclopramide HCl (Reglan) 5 mg Q6H PRN IV NAUSEA AND VOMITING Last administered on 02/13/17 18:07; Admin Dose 5 MG; Start 02/12/17 at 00:00 Hydralazine HCl (Apresoline) 10 mg Q6H PRN IV SBP>150 AND DBP>90; Start at 00:00 Acetaminophen/ Hydrocodone Bitart ([place] (5/325)) 1 tab Q4H PRN PO PAIN LEVEL 1 -5; Start 02/12/17 at 16:30 Hydromorphone HCl (Dilaudid) 1.5 mg Q3 PRN IV PAIN Last administered on 13:22; Admin Dose 1.5 MG; Start 02/12/17 at 22:00 Hydromorphone HCl 4 mg 4 mg Q8 PO Last administered on 02/16/17 05:40; Admin Dose 4 MG; Start 02/13/17 at 22:00 Sodium Chloride (NS) 1,000 ml @ 50 mls/hr Q20H IV Last administered on 11:21; Admin Dose 50 MLS/HR; Start 02/13/17 at 20:00 Oxycodone HCl (Roxicodone) 5 mg BID PO Last administered on 02/16/17 09:05; Admin Dose 5 MG; Start 02/15/17 at 09:00 Prednisone (Prednisone) 10 mg DAILY PO Last administered on 02/16/17 09:04; Admin Dose 10 MG; Start 02/16/17 at 09:00 Assessment/Plan Chief Complaint/Hosp Course ASS 1. Lupus. No evidence of definite activity. No major organ involvement. 2. Chronic pain 3. Low back pain. Likely myofascial. X ray reviewed. No evid. of acute vert. fracture or signif DDD. REC !. Continue prednisone 10 mg daily (her usual dose). Problems: ALIZE NARAYANAN MD Feb 16, 2017 13:50
[2017-02-16] MEDS: ONDANSETRON 4 MG INJ IV PRN (14:56)
[2017-02-16 15:25] LABS: ANA SCREEN NEGATIVE (NEGATIVE)
--- NOTE | 2017-02-16 19:53 | PN ---
Date/Time of Note Date/Time of Note DATE: 02/16/17 TIME: 19:52 Assessment/Plan VTE Prophylaxis VTE Prophylaxis Intervention: other Lines/Catheters IV Catheter Type (from Nrsg): Peripheral IV Urinary Cath still in place: No Assessment/Plan Chief Complaint/Hosp Course 1. Systemic Lupus, hx stable now 2. Noncompliance 3. Chronic pain 4. Insomnia 5 hyponatrenia Problems: PAIN MED PT OT snf iv saline per dr baxter placement issue Problems: Subjective 24 Hr Interval Summary Cardiovascular: no complaints Gastrointestinal: no complaints Musculoskeletal: bone/joint pain Exam/Review of Systems Vital Signs Vitals Vital Signs Date Time Temp Pulse Resp B/P Pulse Ox O2 Delivery O2 Flow Rate FiO2 02/16/17 08:04 98.3 65 16 145/104 99 02/15/17 19:35 Room Air Intake and Output 02/15/17 02/15/17 02/16/17 15:00 23:00 07:00 Intake Total 1500 ml 1700 ml Output Total 1400 ml 1200 ml Balance 100 ml 500 ml Exam Respiratory: clear to auscultation Cardiovascular: regular rate and rhythm Gastrointestinal: soft Musculoskeletal: range of motion (pain) Results Result Diagram: 02/13/17 0435 02/16/17 0420 Results 24 hrs Laboratory Tests Test 02/16/17 04:20 Sodium Level 130 L Potassium Level 3.9 Chloride Level 96 L Carbon Dioxide Level 27 Anion Gap 11 Blood Urea Nitrogen 11 Creatinine 0.54 Glucose Level 96 Calcium Level 9.2 Medications Medications Current Medications Enoxaparin Sodium (Lovenox) 40 mg DAILY SC Last administered on 02/16/17 09:09 ; Admin Dose 40 MG; Start 02/12/17 at 09:00 Amlodipine Besylate (Norvasc) 5 mg DAILY PO Last administered on 02/16/17 09: 04; Admin Dose 5 MG; Start 02/12/17 at 09:00 Pantoprazole (Protonix Tab) 40 mg DAILY@06 PO Last administered on 02/16/17 05 :40; Admin Dose 40 MG; Start 02/12/17 at 06:00 Ondansetron HCl (Zofran Inj) 4 mg Q6H PRN IV NAUSEA AND/OR VOMITING Last administered on 02/16/17 14:56; Admin Dose 4 MG; Start 02/12/17 at 00:00 Clonidine (Catapres) 0.1 mg Q6H PRN PO for SBP>160; Start 02/12/17 at 00:00 Temazepam (Restoril) 15 mg HS PRN PO SLEEP; Start 02/12/17 at 00:00 Metoclopramide HCl (Reglan) 5 mg Q6H PRN IV NAUSEA AND VOMITING Last administered on 02/13/17 18:07; Admin Dose 5 MG; Start 02/12/17 at 00:00 Hydralazine HCl (Apresoline) 10 mg Q6H PRN IV SBP>150 AND DBP>90; Start at 00:00 Acetaminophen/ Hydrocodone Bitart ([place] (5/325)) 1 tab Q4H PRN PO PAIN LEVEL 1 -5; Start 02/12/17 at 16:30 Hydromorphone HCl (Dilaudid) 1.5 mg Q3 PRN IV PAIN Last administered on 16:27; Admin Dose 1.5 MG; Start 02/12/17 at 22:00 Hydromorphone HCl 4 mg 4 mg Q8 PO Last administered on 02/16/17 13:54; Admin Dose 4 MG; Start 02/13/17 at 22:00 Sodium Chloride (NS) 1,000 ml @ 50 mls/hr Q20H IV Last administered on 11:21; Admin Dose 50 MLS/HR; Start 02/13/17 at 20:00 Oxycodone HCl (Roxicodone) 5 mg BID PO Last administered on 02/16/17 09:05; Admin Dose 5 MG; Start 02/15/17 at 09:00 Prednisone (Prednisone) 10 mg DAILY PO Last administered on 02/16/17 09:04; Admin Dose 10 MG; Start 02/16/17 at 09:00 LAKIA SEYMOUR MD Feb 16, 2017 19:53
[2017-02-16 20:29] VITALS: BP 104/71; RESP 20
[2017-02-17] MEDS: HYDROmorphONE 2 MG/ML SYG IV PRN ×2 (02:49→07:01)
[2017-02-17] MEDS: PANTOPRAZOLE (EC) 40 MG TAB PO SCH (05:56)
[2017-02-17] MEDS: HYDROmorphONE 4 MG TAB PO SCH (05:56)
[2017-02-17] MEDS: SOD CHLORIDE 0.9% 1,000 ML IV SCH ×2 (05:56→08:00)
[2017-02-17 07:36] VITALS: BP 132/94; RESP 19
[2017-02-17] MEDS: AMLODIPINE 5 MG TAB PO SCH (09:57)
[2017-02-17] MEDS: predniSONE 10 MG TAB PO SCH (09:57)
[2017-02-17] MEDS: oxyCODONE 5 MG TAB PO SCH (09:57)
[2017-02-17] MEDS: ENOXAPARIN 40 MG/0.4 ML SYG SC SCH (09:59)
--- NOTE | 2017-02-17 11:11 | PN ---
DATE: 02/17/2017 PAIN MANAGEMENT PALLIATIVE CARE PROGRESS NOTE SUBJECTIVE: States she feels better today. She has been seen by Dr. Bell, rheumatology special ist and restarted her prednisone at 10 mg b.i.d. This may have contributed to her improvement. It i s noted that she was off of pain control medications approximately 1 week prior to this hospitalizat ion, and this precipitated this hospitalization also. VITAL SIGNS: Blood pressure 132/94, pulse of 59 and regular, respirations of 19, temperature 98.2 d egrees, 98% saturation on room air. CHEST: Shows bilateral clear breath sounds throughout both lung mata. COR: S1, S2, without S3, S4, murmur, gallop, rub. Normal rate, normal rhythm. ABDOMEN: Benign. ASSESSMENT AND PLAN: I will adjust her pain control medications also. She is receiving 2 p.r.n. br eakthrough medications. I will discontinue the hydromorphone IV and change the hydromorphone 4 mg q .8h. to 4 mg q.8h. p.r.n. and increase her sustained release oxycodone to b.i.d. sustained release. Dictated By: SAVANNAH TRINH MD, LP/OPAL Conf#: [id number] DID#: [id number]
[2017-02-17] MEDS: HYDROmorphONE 4 MG TAB PO PRN ×3 (11:25→23:32)
--- NOTE | 2017-02-17 13:12 | CONS ---
Date/Time of Note Date/Time of Note DATE: 02/17/17 TIME: 13:06 Consult Date/Type/Reason Admit Date/Time Feb 11, 2017 at 22:08 Type of Consultation: Rheum Subjective Continues with intermittent low back ache and occ. feeling of numbness at left toes. No joint swelling. No acute rash.. Objective Vital Signs Date Time Temp Pulse Resp B/P Pulse Ox O2 Delivery O2 Flow Rate FiO2 02/17/17 07:36 98.2 59 19 132/94 98 02/15/17 19:35 Room Air Intake and Output 02/16/17 02/16/17 02/17/17 15:00 23:00 07:00 Intake Total 200 ml 1155 ml 1400 ml Output Total 1200 ml Balance 200 ml 1155 ml 200 ml Exam Alert, oriented Skin with several scaly patches at legs , arms and scalp, without erythema. HEENT without acute findings Chest Clear Heart RRR Abd Soft. MS No synovitis. Results/Medications Result Diagram: 02/13/17 0435 02/16/17 0420 Medications Current Medications Enoxaparin Sodium (Lovenox) 40 mg DAILY SC Last administered on 02/17/17 09:59 ; Admin Dose 40 MG; Start 02/12/17 at 09:00 Amlodipine Besylate (Norvasc) 5 mg DAILY PO Last administered on 02/17/17 09: 57; Admin Dose 5 MG; Start 02/12/17 at 09:00 Pantoprazole (Protonix Tab) 40 mg DAILY@06 PO Last administered on 02/17/17 05 :56; Admin Dose 40 MG; Start 02/12/17 at 06:00 Ondansetron HCl (Zofran Inj) 4 mg Q6H PRN IV NAUSEA AND/OR VOMITING Last administered on 02/16/17 14:56; Admin Dose 4 MG; Start 02/12/17 at 00:00 Clonidine (Catapres) 0.1 mg Q6H PRN PO for SBP>160; Start 02/12/17 at 00:00 Temazepam (Restoril) 15 mg HS PRN PO SLEEP; Start 02/12/17 at 00:00 Metoclopramide HCl (Reglan) 5 mg Q6H PRN IV NAUSEA AND VOMITING Last administered on 02/13/17 18:07; Admin Dose 5 MG; Start 02/12/17 at 00:00 Hydralazine HCl 10 mg 10 mg Q6H PRN IV SBP>150 AND DBP>90; Start 02/12/17 at 00 :00 Sodium Chloride (NS) 1,000 ml @ 50 mls/hr Q20H IV Last administered on 05:56; Admin Dose 50 MLS/HR; Start 02/13/17 at 20:00 Prednisone (Prednisone) 10 mg DAILY PO Last administered on 02/17/17 09:57; Admin Dose 10 MG; Start 02/16/17 at 09:00 Hydromorphone HCl (Dilaudid) 4 mg Q8H PRN PO PAIN LEVEL 8-10 Last administered on 02/17/17 11:25; Admin Dose 4 MG; Start 02/17/17 at 11:00 Oxycodone HCl (Oxycontin) 10 mg BID PO ; Start 02/17/17 at 21:00 Assessment/Plan Chief Complaint/Hosp Course ASS 1. Lupus (?). No definite evidence of systemic lupus. Has negative JOSE. 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 No evidence of definite activity. No major organ involvement. 2. Chronic pain 3. Low back pain. Likely myofascial. X ray reviewed. No evid. of acute vert. fracture or signif DDD. Possibly with some radiculopathy, although Lumbar X rays not suggestive. 4. Depression REC !. Continue prednisone 10 mg daily (her usual dose). Problems: ALIZE NARAYANAN MD Feb 17, 2017 13:12
[2017-02-17] MEDS ORDERED: HYDROmorphONE 1 MG/ML SYG IV ONE (16:30)
[2017-02-17 19:26] VITALS: BP 107/66; RESP 19
--- NOTE | 2017-02-17 19:40 | PN ---
Date/Time of Note Date/Time of Note DATE: 02/17/17 TIME: 19:39 Assessment/Plan VTE Prophylaxis VTE Prophylaxis Intervention: other Lines/Catheters Urinary Cath still in place: No Assessment/Plan Chief Complaint/Hosp Course 1. Systemic Lupus, hx stable now no active lupus 2. Noncompliance 3. Chronic pain 4. Insomnia 5 hyponatrenia poss siadh Problems: PAIN MED PT OT snf iv saline per dr baxter placement issue Problems: Subjective 24 Hr Interval Summary Musculoskeletal: other (joint pain chronic) Exam/Review of Systems Vital Signs Vitals Vital Signs Date Time Temp Pulse Resp B/P Pulse Ox O2 Delivery O2 Flow Rate FiO2 02/17/17 19:26 98.5 76 19 107/66 100 02/15/17 19:35 Room Air Intake and Output 02/16/17 02/16/17 02/17/17 15:00 23:00 07:00 Intake Total 200 ml 1155 ml 1400 ml Output Total 1200 ml Balance 200 ml 1155 ml 200 ml Exam Cardiovascular: regular rate and rhythm Gastrointestinal: soft Extremities: normal pulses Neurological: ADMINISTRATIVE COORDINATOR II-XII intact Results Result Diagram: 02/13/17 0435 02/16/17 0420 Medications Medications Current Medications Enoxaparin Sodium (Lovenox) 40 mg DAILY SC Last administered on 02/17/17 09:59 ; Admin Dose 40 MG; Start 02/12/17 at 09:00 Amlodipine Besylate (Norvasc) 5 mg DAILY PO Last administered on 02/17/17 09: 57; Admin Dose 5 MG; Start 02/12/17 at 09:00 Pantoprazole (Protonix Tab) 40 mg DAILY@06 PO Last administered on 02/17/17 05 :56; Admin Dose 40 MG; Start 02/12/17 at 06:00 Ondansetron HCl (Zofran Inj) 4 mg Q6H PRN IV NAUSEA AND/OR VOMITING Last administered on 02/16/17 14:56; Admin Dose 4 MG; Start 02/12/17 at 00:00 Clonidine (Catapres) 0.1 mg Q6H PRN PO for SBP>160; Start 02/12/17 at 00:00 Temazepam (Restoril) 15 mg HS PRN PO SLEEP; Start 02/12/17 at 00:00 Metoclopramide HCl (Reglan) 5 mg Q6H PRN IV NAUSEA AND VOMITING Last administered on 02/13/17 18:07; Admin Dose 5 MG; Start 02/12/17 at 00:00 Hydralazine HCl 10 mg 10 mg Q6H PRN IV SBP>150 AND DBP>90; Start 02/12/17 at 00 :00 Sodium Chloride (NS) 1,000 ml @ 50 mls/hr Q20H IV Last administered on 05:56; Admin Dose 50 MLS/HR; Start 02/13/17 at 20:00 Prednisone (Prednisone) 10 mg DAILY PO Last administered on 02/17/17 09:57; Admin Dose 10 MG; Start 02/16/17 at 09:00 Hydromorphone HCl (Dilaudid) 4 mg Q8H PRN PO PAIN LEVEL 8-10 Last administered on 02/17/17 11:25; Admin Dose 4 MG; Start 02/17/17 at 11:00 Oxycodone HCl (Oxycontin) 10 mg BID PO ; Start 02/17/17 at 21:00 LAKIA SEYMOUR MD Feb 17, 2017 19:40
[2017-02-17 20:45] LABS: POTASSIUM 4.4 mmol/L (3.5-5.1)
[2017-02-17 20:48] LABS: CREATININE 0.46 mg/dl (0.44-1.00)
[2017-02-17] MEDS ORDERED: oxyCODONE 5 MG TAB PO SCH (21:00)
[2017-02-17] MEDS: oxyCODONE (CR) 10 MG TAB [oxyCONTIN] PO SCH (21:07)
[2017-02-17 21:40] LABS: THYROID STIMULATING HORMONE 0.183 MIU/L (0.465-4.680)
[2017-02-18] MEDS: HYDROmorphONE 4 MG TAB PO PRN ×3 (03:29→19:18)
[2017-02-18] MEDS ORDERED: HYDROmorphONE 1 MG/ML SYG IV ONE (03:43)
[2017-02-18] MEDS: SOD CHLORIDE 0.9% 1,000 ML IV SCH ×2 (04:11→17:54)
[2017-02-18] MEDS: PANTOPRAZOLE (EC) 40 MG TAB PO SCH (06:07)
[2017-02-18 07:52] VITALS: BP 107/67; RESP 18
[2017-02-18] MEDS: predniSONE 10 MG TAB PO SCH (08:50)
[2017-02-18] MEDS: oxyCODONE (CR) 10 MG TAB [oxyCONTIN] PO SCH ×2 (08:51→21:03)
[2017-02-18] MEDS: AMLODIPINE 5 MG TAB PO SCH (08:51)
[2017-02-18 09:00] VITALS: BP 135/94; PULSE 54
[2017-02-18] MEDS: ENOXAPARIN 40 MG/0.4 ML SYG SC SCH (09:00)
--- NOTE | 2017-02-18 13:02 | PN ---
Date/Time of Note Date/Time of Note DATE: 02/18/17 TIME: 12:59 Assessment/Plan VTE Prophylaxis VTE Prophylaxis Intervention: ambulation Lines/Catheters IV Catheter Type (from Nrsg): Peripheral IV Urinary Cath still in place: No Assessment/Plan Chief Complaint/Hosp Course 1. Systemic Lupus, hx stable now no active lupus 2. Noncompliance 3. Chronic pain 4. Insomnia 5 hyponatrenia poss siadh Problems: Assessment/Plan 1. Discharge planning when pt is lower on OxyContin , talked to nursing to speak to pain control MD 2. Discharge planning Exam/Review of Systems Vital Signs Vitals Vital Signs Date Time Temp Pulse Resp B/P Pulse Ox O2 Delivery O2 Flow Rate FiO2 02/18/17 09:00 54 135/94 02/18/17 07:52 98.1 18 100 02/15/17 19:35 Room Air Intake and Output 02/17/17 02/17/17 02/18/17 15:00 23:00 07:00 Intake Total 600 ml 1850 ml Output Total 700 ml Balance 600 ml 1150 ml Results Result Diagram: 02/17/172019 Results 24 hrs Laboratory Tests Test 02/17/17 20:20 Sodium Level 131 L Potassium Level 4.4 Chloride Level 96 L Carbon Dioxide Level 28 Anion Gap 11 Blood Urea Nitrogen 9 Creatinine 0.46 Glucose Level 120 Osmolality 273 L Calcium Level 9.0 Thyroid Stimulating Hormone (TSH) 0.183 L Medications Medications Current Medications Enoxaparin Sodium (Lovenox) 40 mg DAILY SC Last administered on 02/18/17 09:00 ; Admin Dose 40 MG; Start 02/12/17 at 09:00 Amlodipine Besylate (Norvasc) 5 mg DAILY PO Last administered on 02/18/17 08: 51; Admin Dose 5 MG; Start 02/12/17 at 09:00 Pantoprazole (Protonix Tab) 40 mg DAILY@06 PO Last administered on 02/18/17 06 :07; Admin Dose 40 MG; Start 02/12/17 at 06:00 Ondansetron HCl (Zofran Inj) 4 mg Q6H PRN IV NAUSEA AND/OR VOMITING Last administered on 02/16/17 14:56; Admin Dose 4 MG; Start 02/12/17 at 00:00 Clonidine (Catapres) 0.1 mg Q6H PRN PO for SBP>160; Start 02/12/17 at 00:00 Temazepam (Restoril) 15 mg HS PRN PO SLEEP; Start 02/12/17 at 00:00 Metoclopramide HCl (Reglan) 5 mg Q6H PRN IV NAUSEA AND VOMITING Last administered on 02/13/17 18:07; Admin Dose 5 MG; Start 02/12/17 at 00:00 Hydralazine HCl 10 mg 10 mg Q6H PRN IV SBP>150 AND DBP>90; Start 02/12/17 at 00 :00 Sodium Chloride (NS) 1,000 ml @ 50 mls/hr Q20H IV Last administered on 04:11; Admin Dose 50 MLS/HR; Start 02/13/17 at 20:00 Prednisone (Prednisone) 10 mg DAILY PO Last administered on 02/18/17 08:50; Admin Dose 10 MG; Start 02/16/17 at 09:00 Hydromorphone HCl (Dilaudid) 4 mg Q8H PRN PO PAIN LEVEL 8-10 Last administered on 02/18/17 11:29; Admin Dose 4 MG; Start 02/17/17 at 11:00 Oxycodone HCl (Oxycontin) 10 mg BID PO Last administered on 02/18/17 08:51; Admin Dose 10 MG; Start 02/17/17 at 21:00 SHAGGY ALVAREZ Feb 18, 2017 13:02
--- NOTE | 2017-02-18 14:40 | CONS ---
Date/Time of Note Date/Time of Note DATE: 02/18/17 TIME: 14:37 Consult Date/Type/Reason Admit Date/Time Feb 11, 2017 at 22:08 Type of Consultation: Rheum Reason for Consultation No new complaints. Some low back aches pesist. Objective Vital Signs Date Time Temp Pulse Resp B/P Pulse Ox O2 Delivery O2 Flow Rate FiO2 02/18/17 09:00 54 135/94 02/18/17 07:52 98.1 18 100 02/15/17 19:35 Room Air Intake and Output 02/17/17 02/17/17 02/18/17 15:00 23:00 07:00 Intake Total 600 ml 1850 ml Output Total 700 ml Balance 600 ml 1150 ml Exam Alert, oriented Skin with several scaly patches at legs , arms and scalp, without erythema. HEENT without acute findings Chest Clear Heart RRR Abd Soft. MS No synovitis Results/Medications Result Diagram: 02/17/172019 Results 24 hrs Laboratory Tests Test 02/17/17 20:20 Sodium Level 131 L Potassium Level 4.4 Chloride Level 96 L Carbon Dioxide Level 28 Anion Gap 11 Blood Urea Nitrogen 9 Creatinine 0.46 Glucose Level 120 Osmolality 273 L Calcium Level 9.0 Thyroid Stimulating Hormone (TSH) 0.183 L Medications Current Medications Enoxaparin Sodium (Lovenox) 40 mg DAILY SC Last administered on 02/18/17 09:00 ; Admin Dose 40 MG; Start 02/12/17 at 09:00 Amlodipine Besylate (Norvasc) 5 mg DAILY PO Last administered on 02/18/17 08: 51; Admin Dose 5 MG; Start 02/12/17 at 09:00 Pantoprazole (Protonix Tab) 40 mg DAILY@06 PO Last administered on 02/18/17 06 :07; Admin Dose 40 MG; Start 02/12/17 at 06:00 Ondansetron HCl (Zofran Inj) 4 mg Q6H PRN IV NAUSEA AND/OR VOMITING Last administered on 02/16/17 14:56; Admin Dose 4 MG; Start 02/12/17 at 00:00 Clonidine (Catapres) 0.1 mg Q6H PRN PO for SBP>160; Start 02/12/17 at 00:00 Temazepam (Restoril) 15 mg HS PRN PO SLEEP; Start 02/12/17 at 00:00 Metoclopramide HCl (Reglan) 5 mg Q6H PRN IV NAUSEA AND VOMITING Last administered on 02/13/17 18:07; Admin Dose 5 MG; Start 02/12/17 at 00:00 Hydralazine HCl 10 mg 10 mg Q6H PRN IV SBP>150 AND DBP>90; Start 02/12/17 at 00 :00 Sodium Chloride (NS) 1,000 ml @ 50 mls/hr Q20H IV Last administered on 04:11; Admin Dose 50 MLS/HR; Start 02/13/17 at 20:00 Prednisone (Prednisone) 10 mg DAILY PO Last administered on 02/18/17 08:50; Admin Dose 10 MG; Start 02/16/17 at 09:00 Hydromorphone HCl (Dilaudid) 4 mg Q8H PRN PO PAIN LEVEL 8-10 Last administered on 02/18/17 11:29; Admin Dose 4 MG; Start 02/17/17 at 11:00 Oxycodone HCl (Oxycontin) 10 mg BID PO Last administered on 02/18/17 08:51; Admin Dose 10 MG; Start 02/17/17 at 21:00 Assessment/Plan Chief Complaint/Hosp Course ASS 1. Lupus (?). No definite evidence of systemic lupus. Has negative JOSE. 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 No evidence of definite activity. No major organ involvement. 2. Chronic pain 3. Low back pain. Likely myofascial. X ray reviewed. No evid. of acute vert. fracture or signif DDD. Possibly with some radiculopathy, although Lumbar X rays not suggestive. 4. Hyponatremia 5. Depression REC 1. Continue prednisone 10 mg daily (her usual dose). Problems: ALIZE NARAYANAN MD Feb 18, 2017 14:40
[2017-02-18 19:21] VITALS: BP 118/86; RESP 19
[2017-02-19] MEDS: HYDROmorphONE 4 MG TAB PO PRN ×3 (03:19→19:59)
[2017-02-19] MEDS: PANTOPRAZOLE (EC) 40 MG TAB PO SCH (06:18)
[2017-02-19 06:38] LABS: ADD SCAN DIFF NO
[2017-02-19 06:52] LABS: BASOPHILS % 0.4 % (0.0-2.0); EOSINOPHILS # 0.1 10^3/ul (0.0-0.5); EOSINOPHILS % 1.1 % (0.0-7.0); HEMATOCRIT 33.3 % (37.0-47.0); HEMOGLOBIN 11.1 g/dl (12.0-16.0); LYMPHOCYTES # 3.8 10^3/ul (0.8-2.9); LYMPHOCYTES % 37.2 % (15.0-51.0); MEAN CORPUSCULAR HEMOGLOBIN 28.6 pg (29.0-33.0); MEAN CORPUSCULAR HGB CONC 33.3 g/dl (32.0-37.0); MEAN CORPUSCULAR VOLUME 85.8 fl (82.0-101.0); MEAN PLATELET VOLUME 9.2 fl (7.4-10.4); MONOCYTE # 0.7 10^3/ul (0.3-0.9); MONOCYTES % 7.2 % (0.0-11.0); NEUTROPHIL # 5.4 10^3/ul (1.6-7.5); NEUTROPHILS % 53.7 % (39.0-77.0); PLATELET COUNT 402 10^3/UL (140-415); RED BLOOD COUNT 3.88 10^6/ul (4.20-5.40); RED CELL DISTRIBUTION WIDTH 13.3 % (11.5-14.5); WHITE BLOOD COUNT 10.1 10^3/ul (4.8-10.8)
[2017-02-19 07:12] LABS: POTASSIUM 3.8 mmol/L (3.5-5.1)
[2017-02-19 07:14] LABS: CREATININE 0.48 mg/dl (0.44-1.00)
[2017-02-19] MEDS: predniSONE 10 MG TAB PO SCH (08:01)
[2017-02-19] MEDS: oxyCODONE (CR) 10 MG TAB [oxyCONTIN] PO SCH ×2 (08:01→21:14)
[2017-02-19] MEDS: AMLODIPINE 5 MG TAB PO SCH (08:04)
[2017-02-19] MEDS: ENOXAPARIN 40 MG/0.4 ML SYG SC SCH (08:08)
[2017-02-19 08:11] VITALS: BP 103/64; RESP 16
[2017-02-19] MEDS: DEMECLOCYCLINE 150 MG TAB PO SCH ×2 (11:20→21:14)
--- NOTE | 2017-02-19 12:58 | PN ---
Date/Time of Note Date/Time of Note DATE: 02/19/17 TIME: 12:57 Assessment/Plan VTE Prophylaxis VTE Prophylaxis Intervention: ambulation Lines/Catheters IV Catheter Type (from Nrs): Saline Lock Urinary Cath still in place: No Assessment/Plan Chief Complaint/Hosp Course 1. Systemic Lupus, hx stable now no active lupus 2. Noncompliance 3. Chronic pain 4. Insomnia 5 hyponatrenia poss siadh Problems: Assessment/Plan 1. Discharge planning, talked to dr Dominguez to decrease her pain meds Subjective 24 Hr Interval Summary Constitutional: no complaints Eyes: no complaints ENT: no complaints Exam/Review of Systems Vital Signs Vitals Vital Signs Date Time Temp Pulse Resp B/P Pulse Ox O2 Delivery O2 Flow Rate FiO2 02/19/17 08:11 98.3 55 16 103/64 100 02/15/17 19:35 Room Air Intake and Output 02/18/17 02/18/17 02/19/17 15:00 23:00 07:00 Intake Total 1210 ml 1550 ml Output Total 1350 ml Balance 1210 ml 200 ml Exam Constitutional: alert, oriented Psych: no complaints Head: normocephalic Eyes: nl conjunctiva ENMT: nl external ears & nose Respiratory: clear to auscultation Cardiovascular: regular rate and rhythm Results Result Diagram: 02/19/170 02/19/17 0440 Results 24 hrs Laboratory Tests Test 02/19/17 03:15 02/19/17 04:40 Urine Osmolality 308 Urine Random Sodium 98 H White Blood Count 10.1 Red Blood Count 3.88 L Hemoglobin 11.1 L Hematocrit 33.3 L Mean Corpuscular Volume 85.8 Mean Corpuscular Hemoglobin 28.6 L Mean Corpuscular Hemoglobin Concent 33.3 Red Cell Distribution Width 13.3 Platelet Count 402 Mean Platelet Volume 9.2 Neutrophils % 53.7 Lymphocytes % 37.2 Monocytes % 7.2 Eosinophils % 1.1 Basophils % 0.4 Nucleated Red Blood Cells % 0.0 Neutrophils # 5.4 Lymphocytes # 3.8 H Monocytes # 0.7 Eosinophils # 0.1 Basophils # 0.0 Nucleated Red Blood Cells # 0.0 Sodium Level 131 L Potassium Level 3.8 Chloride Level 97 Carbon Dioxide Level 27 Anion Gap 11 Blood Urea Nitrogen 7 Creatinine 0.48 Glucose Level 85 Calcium Level 9.0 Medications Medications Current Medications Enoxaparin Sodium (Lovenox) 40 mg DAILY SC Last administered on 02/19/17 08:08 ; Admin Dose 40 MG; Start 02/12/17 at 09:00 Amlodipine Besylate (Norvasc) 5 mg DAILY PO Last administered on 02/19/17 08:04 ; Admin Dose 5 MG; Start 02/12/17 at 09:00 Pantoprazole (Protonix Tab) 40 mg DAILY@06 PO Last administered on 02/19/17 06: 18; Admin Dose 40 MG; Start 02/12/17 at 06:00 Ondansetron HCl (Zofran Inj) 4 mg Q6H PRN IV NAUSEA AND/OR VOMITING Last administered on 02/16/17 14:56; Admin Dose 4 MG; Start 02/12/17 at 00:00 Clonidine (Catapres) 0.1 mg Q6H PRN PO for SBP>160; Start 02/12/17 at 00:00 Temazepam (Restoril) 15 mg HS PRN PO SLEEP; Start 02/12/17 at 00:00 Metoclopramide HCl (Reglan) 5 mg Q6H PRN IV NAUSEA AND VOMITING Last administered on 02/13/17 18:07; Admin Dose 5 MG; Start 02/12/17 at 00:00 Hydralazine HCl (Apresoline) 10 mg Q6H PRN IV SBP>150 AND DBP>90; Start at 00:00 Prednisone (Prednisone) 10 mg DAILY PO Last administered on 02/19/17 08:01; Admin Dose 10 MG; Start 02/16/17 at 09:00 Hydromorphone HCl (Dilaudid) 4 mg Q8H PRN PO PAIN LEVEL 8-10 Last administered on 02/19/17 11:20; Admin Dose 4 MG; Start 02/17/17 at 11:00 Oxycodone HCl (Oxycontin) 10 mg BID PO Last administered on 02/19/17 08:01; Admin Dose 10 MG; Start 02/17/17 at 21:00 Demeclocycline HCl (Declomycin) 150 mg BID PO Last administered on 02/19/17 11: 20; Admin Dose 150 MG; Start 02/19/17 at 09:00 SHAGGY ALVAREZ Feb 19, 2017 12:58
--- NOTE | 2017-02-19 17:13 | CONS ---
Date/Time of Note Date/Time of Note DATE: 02/19/17 TIME: 17:09 Consult Date/Type/Reason Admit Date/Time Feb 11, 2017 at 22:08 Type of Consultation: Rheum Subjective Appears depressed. Complain of some abd. pain since last night. No diarrhea or constipation. Less back ache. No new other complaints.. Objective Vital Signs Date Time Temp Pulse Resp B/P Pulse Ox O2 Delivery O2 Flow Rate FiO2 02/19/17 08:11 98.3 55 16 103/64 100 02/15/17 19:35 Room Air Intake and Output 02/18/17 02/18/17 02/19/17 15:00 23:00 07:00 Intake Total 1210 ml 1550 ml Output Total 1350 ml Balance 1210 ml 200 ml Exam Alert, oriented. Skin without acule lesions. HEENT aithout acute lesions. chest Clear Heart RRR. Abdomen Mild diffuse tenderness. No rebound tenderness. Ext No synovitis. Results/Medications Result Diagram: 02/19/17 0440 02/19/17 0440 Results 24 hrs Laboratory Tests Test 02/19/17 03:15 02/19/17 04:40 Urine Osmolality 308 Urine Random Sodium 98 H White Blood Count 10.1 Red Blood Count 3.88 L Hemoglobin 11.1 L Hematocrit 33.3 L Mean Corpuscular Volume 85.8 Mean Corpuscular Hemoglobin 28.6 L Mean Corpuscular Hemoglobin Concent 33.3 Red Cell Distribution Width 13.3 Platelet Count 402 Mean Platelet Volume 9.2 Neutrophils % 53.7 Lymphocytes % 37.2 Monocytes % 7.2 Eosinophils % 1.1 Basophils % 0.4 Nucleated Red Blood Cells % 0.0 Neutrophils # 5.4 Lymphocytes # 3.8 H Monocytes # 0.7 Eosinophils # 0.1 Basophils # 0.0 Nucleated Red Blood Cells # 0.0 Sodium Level 131 L Potassium Level 3.8 Chloride Level 97 Carbon Dioxide Level 27 Anion Gap 11 Blood Urea Nitrogen 7 Creatinine 0.48 Glucose Level 85 Calcium Level 9.0 Medications Current Medications Enoxaparin Sodium (Lovenox) 40 mg DAILY SC Last administered on 02/19/17 08:08 ; Admin Dose 40 MG; Start 02/12/17 at 09:00 Amlodipine Besylate (Norvasc) 5 mg DAILY PO Last administered on 02/19/17 08:04 ; Admin Dose 5 MG; Start 02/12/17 at 09:00 Pantoprazole (Protonix Tab) 40 mg DAILY@06 PO Last administered on 02/19/17 06: 18; Admin Dose 40 MG; Start 02/12/17 at 06:00 Ondansetron HCl (Zofran Inj) 4 mg Q6H PRN IV NAUSEA AND/OR VOMITING Last administered on 02/16/17 14:56; Admin Dose 4 MG; Start 02/12/17 at 00:00 Clonidine (Catapres) 0.1 mg Q6H PRN PO for SBP>160; Start 02/12/17 at 00:00 Temazepam (Restoril) 15 mg HS PRN PO SLEEP; Start 02/12/17 at 00:00 Metoclopramide HCl (Reglan) 5 mg Q6H PRN IV NAUSEA AND VOMITING Last administered on 02/13/17 18:07; Admin Dose 5 MG; Start 02/12/17 at 00:00 Hydralazine HCl (Apresoline) 10 mg Q6H PRN IV SBP>150 AND DBP>90; Start at 00:00 Prednisone (Prednisone) 10 mg DAILY PO Last administered on 02/19/17 08:01; Admin Dose 10 MG; Start 02/16/17 at 09:00 Hydromorphone HCl (Dilaudid) 4 mg Q8H PRN PO PAIN LEVEL 8-10 Last administered on 02/19/17 11:20; Admin Dose 4 MG; Start 02/17/17 at 11:00 Oxycodone HCl (Oxycontin) 10 mg BID PO Last administered on 02/19/17 08:01; Admin Dose 10 MG; Start 02/17/17 at 21:00 Demeclocycline HCl (Declomycin) 150 mg BID PO Last administered on 02/19/17 11: 20; Admin Dose 150 MG; Start 02/19/17 at 09:00 Assessment/Plan Chief Complaint/Hosp Course ASS 1. Lupus (?). No definite evidence of systemic lupus. Has negative JOSE. 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 No evidence of definite activity. No major organ involvement. 2. Chronic pain 3. Low back pain. Likely myofascial. X ray reviewed. No evid. of acute vert. fracture or signif DDD. Possibly with some radiculopathy, although Lumbar X rays not suggestive. In past was treated apparently for radiculopathy (?). 4. Hyponatremia 5. Abdominal pain. No evidence of acute abdomen. 6. Depression REC 1. Continue prednisone 10 mg daily (her usual dose). Problems: ALIZE NARAYANAN MD Feb 19, 2017 17:13
[2017-02-19 20:44] VITALS: BP 103/71; RESP 18
[2017-02-20] MEDS: HYDROmorphONE 4 MG TAB PO PRN ×3 (03:52→20:17)
[2017-02-20] MEDS: PANTOPRAZOLE (EC) 40 MG TAB PO SCH (06:46)
[2017-02-20] MEDS: predniSONE 10 MG TAB PO SCH (08:04)
[2017-02-20] MEDS: oxyCODONE (CR) 10 MG TAB [oxyCONTIN] PO SCH ×3 (08:04→22:12)
[2017-02-20] MEDS: DEMECLOCYCLINE 150 MG TAB PO SCH ×2 (08:04→20:17)
[2017-02-20] MEDS: AMLODIPINE 5 MG TAB PO SCH (08:04)
[2017-02-20] MEDS: ENOXAPARIN 40 MG/0.4 ML SYG SC SCH (08:06)
[2017-02-20 08:42] VITALS: BP 123/75; PULSE 74; RESP 17
--- NOTE | 2017-02-20 17:07 | PDOCDIS ---
Discharge Instructions CONDITION Patient Condition: Stable HOME CARE INSTRUCTIONS: Diet Instructions: RegularSpecial Diet: rd ACTIVITY: Activity Restrictions: Slowly Increase Activity Rest between Activity Avoid heavy lifting Do not Drive Do not operate Power Tool Avoid Heavy Housework Bathing Restrictions: Sponge BathActivity Restrictions Comment: shower if strength is adequate FOLLOW UP/APPOINTMENTS Appointments f/u pcp 1 wks LAKIA SEYMOUR MD Feb 20, 2017 17:07
[2017-02-20] MEDS ORDERED: RES15 PO (17:10)
[2017-02-20] MEDS ORDERED: LOV40I SC (17:10)
--- NOTE | 2017-02-20 17:15 | PN ---
Date/Time of Note Date/Time of Note DATE: 02/20/17 TIME: 17:12 Assessment/Plan VTE Prophylaxis VTE Prophylaxis Intervention: other Lines/Catheters IV Catheter Type (from Nrsg): Saline Lock Urinary Cath still in place: No Assessment/Plan Chief Complaint/Hosp Course 1. Systemic Lupus, hx stable now no active lupus 2. Noncompliance 3. Chronic pain 4. Insomnia 5 hyponatrenia poss siadh Problems: PAIN MED PT OT snf per dr baxter placement issue Problems: Subjective 24 Hr Interval Summary Respiratory: no complaints Cardiovascular: no complaints Exam/Review of Systems Vital Signs Vitals Vital Signs Date Time Temp Pulse Resp B/P Pulse Ox O2 Delivery O2 Flow Rate FiO2 02/20/17 08:42 98.0 74 17 123/75 99 Room Air Intake and Output 02/19/17 02/19/17 02/20/17 15:00 23:00 07:00 Intake Total 1060 ml 1050 ml Output Total 1200 ml 950 ml Balance -140 ml 100 ml Exam Respiratory: clear to auscultation Cardiovascular: regular rate and rhythm Musculoskeletal: muscle weakness (+) Results Result Diagram: 02/19/17 0440 02/19/17 0440 Medications Medications Current Medications Enoxaparin Sodium (Lovenox) 40 mg DAILY SC Last administered on 02/20/17 08:06 ; Admin Dose 40 MG; Start 02/12/17 at 09:00 Amlodipine Besylate (Norvasc) 5 mg DAILY PO Last administered on 02/20/17 08:04 ; Admin Dose 5 MG; Start 02/12/17 at 09:00 Pantoprazole (Protonix Tab) 40 mg DAILY@06 PO Last administered on 02/20/17 06: 46; Admin Dose 40 MG; Start 02/12/17 at 06:00 Ondansetron HCl (Zofran Inj) 4 mg Q6H PRN IV NAUSEA AND/OR VOMITING Last administered on 02/16/17 14:56; Admin Dose 4 MG; Start 02/12/17 at 00:00 Clonidine (Catapres) 0.1 mg Q6H PRN PO for SBP>160; Start 02/12/17 at 00:00 Temazepam (Restoril) 15 mg HS PRN PO SLEEP; Start 02/12/17 at 00:00 Metoclopramide HCl (Reglan) 5 mg Q6H PRN IV NAUSEA AND VOMITING Last administered on 02/13/17 18:07; Admin Dose 5 MG; Start 02/12/17 at 00:00 Hydralazine HCl (Apresoline) 10 mg Q6H PRN IV SBP>150 AND DBP>90; Start at 00:00 Prednisone (Prednisone) 10 mg DAILY PO Last administered on 02/20/17 08:04; Admin Dose 10 MG; Start 02/16/17 at 09:00 Hydromorphone HCl (Dilaudid) 4 mg Q8H PRN PO PAIN LEVEL 8-10 Last administered on 02/20/17 12:48; Admin Dose 4 MG; Start 02/17/17 at 11:00 Oxycodone HCl (Oxycontin) 10 mg BID PO Last administered on 02/20/17 08:04; Admin Dose 10 MG; Start 02/17/17 at 21:00 Demeclocycline HCl (Declomycin) 150 mg BID PO Last administered on 02/20/17 08: 04; Admin Dose 150 MG; Start 02/19/17 at 09:00 LAKIA SEYMOUR MD Feb 20, 2017 17:15
[2017-02-20 19:35] VITALS: BP 123/84; RESP 17
[2017-02-20] MEDS: ONDANSETRON 4 MG INJ IV PRN (20:36)
[2017-02-20] MEDS ORDERED: HYDROmorphONE 1 MG/ML SYG IV STA (21:15)
[2017-02-21] MEDS: ONDANSETRON 4 MG INJ IV PRN ×2 (02:52→10:11)
[2017-02-21] MEDS: PANTOPRAZOLE (EC) 40 MG TAB PO SCH (05:54)
[2017-02-21] MEDS: HYDROmorphONE 4 MG TAB PO PRN ×2 (05:54→15:25)
[2017-02-21 08:12] VITALS: BP 120/77; RESP 18
[2017-02-21] MEDS: predniSONE 10 MG TAB PO SCH (09:52)
[2017-02-21] MEDS: DEMECLOCYCLINE 150 MG TAB PO SCH (09:52)
[2017-02-21] MEDS: oxyCODONE (CR) 10 MG TAB [oxyCONTIN] PO SCH (09:52)
[2017-02-21] MEDS: AMLODIPINE 5 MG TAB PO SCH (09:53)
[2017-02-21] MEDS: ENOXAPARIN 40 MG/0.4 ML SYG SC SCH (09:54)
[2017-02-21 14:01] LABS: ANA SCREEN NEGATIVE (NEGATIVE)
[2017-02-21] MEDS ORDERED: OXYC10TA63 PO (16:14)
[2017-02-21] MEDS ORDERED: PANT40TA4 PO (16:14)
[2017-02-21] MEDS ORDERED: PRED10TA PO (16:14)
[2017-02-21] MEDS ORDERED: TRAM50TA2 PO (16:14)
[2017-02-21] MEDS ORDERED: DEME150T8 PO (16:14)
[2017-02-21] MEDS ORDERED: AMLO-145 PO (16:14)
[2017-02-21] MEDS ORDERED: HYDR8TAB25 PO (16:14)
--- NOTE | 2017-02-21 16:16 | PDOCDIS ---
Discharge Instructions CONDITION Patient Condition: Stable HOME CARE INSTRUCTIONS: Diet Instructions: RegularSpecial Diet: rd ACTIVITY: Activity Restrictions: Slowly Increase Activity Rest between Activity Avoid heavy lifting Do not Drive Do not operate Power Tool Avoid Heavy Housework Bathing Restrictions: Sponge BathActivity Restrictions Comment: shower if strength is adequate FOLLOW UP/APPOINTMENTS Appointments f/u own pcp 1 wk LAKIA SEYMOUR MD Feb 21, 2017 16:16
--- NOTE | 2017-02-21 18:58 | PN ---
Date/Time of Note Date/Time of Note DATE: 02/21/17 TIME: 18:57 Assessment/Plan VTE Prophylaxis VTE Prophylaxis Intervention: other Lines/Catheters IV Catheter Type (from Nrsg): Saline Lock Urinary Cath still in place: No Assessment/Plan Chief Complaint/Hosp Course 1. Systemic Lupus, hx stable now no active lupus 2. Noncompliance 3. Chronic pain 4. Insomnia 5 hyponatrenia poss siadh Problems: PAIN MED PT OT snf refused by pt home Problems: Subjective 24 Hr Interval Summary Cardiovascular: no complaints Gastrointestinal: no complaints Genitourinary: no complaints Exam/Review of Systems Vital Signs Vitals Vital Signs Date Time Temp Pulse Resp B/P Pulse Ox O2 Delivery O2 Flow Rate FiO2 02/21/17 08:12 98.0 60 18 120/77 98 02/20/17 08:42 Room Air Intake and Output 02/20/17 02/20/17 02/21/17 15:00 23:00 07:00 Intake Total 1200 ml 370 ml Output Total 800 ml 400 ml Balance 400 ml -30 ml Exam Neck: supple Respiratory: clear to auscultation Cardiovascular: regular rate and rhythm Gastrointestinal: soft Musculoskeletal: nl extremities to inspection Extremities: normal pulses Results Result Diagram: 02/19/17 0440 02/19/17 0440 Medications Medications Current Medications Enoxaparin Sodium (Lovenox) 40 mg DAILY SC Last administered on 02/21/17 09:54 ; Admin Dose 40 MG; Start 02/12/17 at 09:00 Amlodipine Besylate (Norvasc) 5 mg DAILY PO Last administered on 02/21/17 09:53 ; Admin Dose 5 MG; Start 02/12/17 at 09:00 Pantoprazole (Protonix Tab) 40 mg DAILY@06 PO Last administered on 02/21/17 05: 54; Admin Dose 40 MG; Start 02/12/17 at 06:00 Ondansetron HCl (Zofran Inj) 4 mg Q6H PRN IV NAUSEA AND/OR VOMITING Last administered on 02/21/17 10:11; Admin Dose 4 MG; Start 02/12/17 at 00:00 Clonidine (Catapres) 0.1 mg Q6H PRN PO for SBP>160; Start 02/12/17 at 00:00 Temazepam (Restoril) 15 mg HS PRN PO SLEEP Last administered on 02/20/17 22:11 ; Admin Dose 15 MG; Start 02/12/17 at 00:00 Metoclopramide HCl (Reglan) 5 mg Q6H PRN IV NAUSEA AND VOMITING Last administered on 02/13/17 18:07; Admin Dose 5 MG; Start 02/12/17 at 00:00 Hydralazine HCl (Apresoline) 10 mg Q6H PRN IV SBP>150 AND DBP>90; Start at 00:00 Prednisone (Prednisone) 10 mg DAILY PO Last administered on 02/21/17 09:52; Admin Dose 10 MG; Start 02/16/17 at 09:00 Hydromorphone HCl (Dilaudid) 4 mg Q8H PRN PO PAIN LEVEL 8-10 Last administered on 02/21/17 15:25; Admin Dose 4 MG; Start 02/17/17 at 11:00 Oxycodone HCl (Oxycontin) 10 mg BID PO Last administered on 02/21/17 09:52; Admin Dose 10 MG; Start 02/17/17 at 21:00 Demeclocycline HCl (Declomycin) 150 mg BID PO Last administered on 02/21/17 09: 52; Admin Dose 150 MG; Start 02/19/17 at 09:00 LAKIA SEYMOUR MD Feb 21, 2017 18:58
== END 2017-02-21 20:05 | disposition home or self-care (01) | DRG 546 ==
LOC: MS1 22:08
PROVIDERS: ADMIT Internal Medicine Nephrology; ATTEND Internal Medicine Nephrology
DX: M32.9 Systemic lupus erythematosus, unspecified (principal); E87.1 Hypo-osmolality and hyponatremia; G89.29 Other chronic pain; G47.00 Insomnia, unspecified; Z91.14 Patient's other noncompliance with medication regimen; Z79.891 Long term (current) use of opiate analgesic; Z79.52 Long term (current) use of systemic steroids; E05.00 Thyrotoxicosis with diffuse goiter without thyrotoxic crisis or storm; M54.9 Dorsalgia, unspecified; F32.9 Major depressive disorder, single episode, unspecified
CPT/HCPCS: 72110; 80048; 80053; 81001; 81003; 83930; 83935; 84300; 84443; 85025; 86038; 86140; 86160; 86226; 86430; 87081; 97110; 97116; 97162; 97167; 97530; J1170; J1650; J2405; J2765; J2920; J3480; J7030; J7042; J7512

== ENCOUNTER 2017-03-14 18:16 | Emergency (ER) | payer OTHER ==
[~2017-03-14] VITALS: Ht 165.1 cm; Wt 53.5 kg
[~2017-03-14 18:16] MED LIST changes: +AMLO-145 PO; -AMOX1TAB10 PO; -ATEN-51; -CIPR500T4 PO; +DEME150T8 PO; +ENOX40DI2 SC; +HYDR8TAB25 PO; +OXYC10TA63 PO; +PANT40TA4 PO; +PRED10TA PO; +RES15 PO
[2017-03-14 18:39] VITALS: Ht 165.1 cm; Wt 53.5 kg
[2017-03-14] MEDS ORDERED: ONDANSETRON (ODT) 4 MG TAB ODT STA (19:40)
[2017-03-14] MEDS ORDERED: HYDROmorphONE 1 MG/ML SYG IM STA (19:40)
[2017-03-14] MEDS ORDERED: METHYLPREDNISOLONE 125 MG INJ IM ONE (20:00)
[2017-03-14] MEDS ORDERED: PRED20TA PO (20:14)
[2017-03-14] MEDS ORDERED: HYDR-902 PO (20:14)
--- NOTE | 2017-03-14 20:15 | ERD ---
ER Documentation Chief Complaint Date/Time DATE: 03/14/17 TIME: 20:14 Chief Complaint SWELLING NATHALIA ANKLES X 3 DAYS. HX LUPUS. "HURTS TO WALK" DENIES SOB. HPI This is a 51-year-old female complaining of a lupus exacerbation. The patient has a long-standing history of lupus and says when she gets flareups she gets pain in her joints including her ankles wrists digits and knees. The she says she has been out of her prednisone for the past 2 weeks and takes 20 mg a day. She has had no fever cough shortness of breath chest pain headache nausea vomiting or diarrhea. No swelling of the joints pain is described as dull and worse with movement better with rest ROS All systems reviewed and are negative except as per history of present illness. Medications Home Meds Active Scripts Hydrocodone/Acetaminophen (Theodosia 10-325 Tablet) 1 Each Tablet, 1 TAB PO Q6H Y for PAIN, #20 TAB Prov:KARINA RINGSTELIZABETH Mayers DO 03/14/17 Prednisone* (Prednisone*) 20 Mg Tab, 20 MG PO DAILY for 30 Days, TAB Prov:KARINA RINGSTOLOS A. DO 03/14/17 Prednisone* (Prednisone*) 20 Mg Tab, 60 MG PO DAILY for 5 Days, TAB Prov:KARINA RINGSTELIZABETH Mayers DO 03/14/17 Prednisone* (Prednisone*) 10 Mg Tab, 10 MG PO DAILY for 28 Days, TAB Prov:LAKIA SEYMOUR MD 02/21/17 Pantoprazole* (Pantoprazole*) 40 Mg Tablet.dr, 40 MG PO DAILY@06 for 14 Days Prov:LAKIA SEYMOUR MD 02/21/17 Oxycodone Hcl* (Oxycontin*) 10 Mg Tab.sr.12h, 10 MG PO BID for 14 Days Prov:LAKIA SEYMOUR MD 02/21/17 Amlodipine Besylate* (Amlodipine Besylate*) 5 Mg Tablet, 5 MG PO DAILY for 14 Days, TAB Prov:LAKIA SEYMOUR MD 02/21/17 Demeclocycline Hcl* (Declomycin*) 150 Mg Tablet, 150 MG PO BID for 14 Days, TAB Prov:LAKIA SEYMOUR MD 02/21/17 Hydromorphone Hcl* (Dilaudid*) 8 Mg Tablet, 8 MG PO TID Y for PAIN for 14 Days, TAB Prov:LAKIA SEYMOUR MD 02/21/17 Tramadol HCl (Tramadol HCl) 50 Mg Tablet, 50 MG PO Q6 Y for PAIN for 10 Days, # 15 TAB Prov:LAKIA SEYMOUR MD 02/21/17 Temazepam (Restoril) 15 Mg Cap, 15 MG PO HS Y for SLEEP for 10 Days, CAP Prov:LAKIA SEYMOUR MD 02/20/17 Enoxaparin Sodium* (Enoxaparin Sodium*) 40 Mg/0.4 Ml Syringe, 40 MG SC DAILY for 28 Days Prov:LAKIA SEYMOUR MD 02/20/17 Tramadol HCl (Tramadol HCl) 50 Mg Tablet, 50 MG PO Q4 Y for PAIN, #[address] or operate heavy machinery while taking this medication Prov:CORINA GOLDSTEIN PA-C 09/13/16 Hydrocodone Bit-Acetaminophen* (Theodosia*) 5-325 Mg Tab, 1 TAB PO Q6 Y for PAIN, # 7 TAB Prov:DINORA ARCOS 01/05/16 Reported Medications Prednisone* (Prednisone*) 10 Mg Tab, 10 MG PO DAILY, TAB 02/12/17 Salmeterol Xinaf/Fluticasone* (Advair 100/50 Diskus*) 1 Inh Inha 12/03/09 Lorazepam* (Ativan*) 0.5 Mg Tablet 12/03/09 Allergies Allergies: Coded Allergies: aspirin (Verified Allergy, Mild, 03/14/17) Penicillins (Verified Allergy, Unknown, 03/14/17) PMhx/Soc History of Surgery: Yes (left ovary and tubes removed) Anesthesia Reaction: No Hx Neurological Disorder: No Hx Respiratory Disorders: No Hx Cardiac Disorders: Yes (HTN) Hx Psychiatric Problems: No Hx Miscellaneous Medical Probl: Yes (lupus) Hx Alcohol Use: No Hx Substance Use: No Hx Tobacco Use: No Smoking Status: Never smoker FmHx Family History: No coronary disease Physical Exam Vitals Vital Signs Date Time Temp Pulse Resp B/P Pulse Ox O2 Delivery O2 Flow Rate FiO2 03/14/17 18:39 98.1 63 18 138/66 100 Physical Exam Const: Well-developed, well-nourished Head: Atraumatic, normocephalic Eyes: Normal Conjunctiva, PERRLA, EOMI, normal sclera, no nystagmus ENT: Normal External Ears, Nose and Mouth, moist mucus membranes. Neck: Full range of motion. No meningismus, no lymphadenopathy. Resp: Clear to auscultation bilaterally, no wheezing, rhonchi, rales Cardio: Regular rate and rhythm, no murmurs, S1 S2 present Abd: Soft, non tender x 4, non distended. Normal bowel sounds, no guarding or rebound, no pulsitile abdominal masses or bruits Skin: No petechiae or rashes, no ecchymosis , no maculopapular rash Back: No midline or flank tenderness Ext: No cyanosis, or edema, FROM x 4, normal inspection, neurovascularly intact x 4, no swelling of joints there is some pain with passive active range of motion of ankle wrist and digits of the fingers Neur: Awake and alert, STR 5/5 x 4, sensation intact x 4, no focal findings, cerebellum intact Psych: Normal Mood and Affect Results 24 hrs Current Medications Medications (Trade) Dose Ordered Sig/Hector Route PRN Reason Start Time Stop Time Status Last Admin Dose Admin Methylprednisolone Sodium Succinate (Solu-Medrol) 125 mg ONCE ONCE IM 03/14/17 20:00 03/14/17 20:01 DC 03/14/17 19:50 Hydromorphone HCl (Dilaudid) 1 mg ONCE STAT IM 03/14/17 19:40 03/14/17 19:41 DC 03/14/17 19:51 Ondansetron HCl (Zofran Odt) 8 mg ONCE STAT ODT 03/14/17 19:40 03/14/17 19:41 DC 03/14/17 19:50 Procedures/MDM Treated with steroids and pain medicine here we will discharge him with prednisone Departure Diagnosis: Primary Impression: Exacerbation of systemic lupus Condition: Stable Patient Instructions: Understanding JEFFERY Moore DO Mar 14, 2017 20:15
[2017-03-14 21:20] VITALS: BP 142/72; PULSE 67; RESP 20; TEMP 98.3
== END 2017-03-14 21:21 | disposition home or self-care (01) ==
LOC: FTE 18:16
DX: M32.9 Systemic lupus erythematosus, unspecified (principal); I10 Essential (primary) hypertension
CPT/HCPCS: J1170; J2930; Z7610; 96372

== ENCOUNTER 2017-04-03 17:17 | Emergency (ER) | payer OTHER ==
[~2017-04-03] VITALS: Ht 165.1 cm; Wt 54.0 kg
[~2017-04-03 17:17] MED LIST changes: +HYDR-902 PO; +PRED20TA PO
[2017-04-03 17:20] VITALS: Ht 165.1 cm; Wt 54.0 kg
[2017-04-03] MEDS ORDERED: HYDR-902 PO (18:21)
[2017-04-03] MEDS ORDERED: PRED10TA PO (18:21)
--- NOTE | 2017-04-03 18:28 | ERD ---
ER Documentation Chief Complaint Date/Time DATE: 04/03/17 TIME: 18:24 Chief Complaint lupus flare up HPI This 51-year-old female presents with a complaint of a lupus flare. Patient gives a history of discoid lupus as well as diffuse pain in her joints and lower back. Patient had a recent admission to the hospital proximately 2 months ago which resulted in negative autoimmune labs and a rheumatology consultation which documents no evidence of systemic lupus. Patient also gives a history of hypothyroidism or Graves' disease but is recently been instructed to not continue her Synthroid. Patient takes prednisone 10 mg a day which is a lower dose than her previousdose. She also takes chronic pain medication. Patient denies chest pain, shortness of breath, vomiting, fevers, additional symptoms. Patient states that she has been recently forced upon her new primary care doctor due to some insurance issues. ROS All systems reviewed and are negative except as per history of present illness. Medications Home Meds Active Scripts Hydrocodone/Acetaminophen ([place] 10-325 Tablet) 1 Each Tablet, 1 TAB PO Q6H Y for PAIN, #15 TAB Prov:FLY HUTCHINS MD 04/03/17 Prednisone (Prednisone) 10 Mg Tab, 10 MG PO Q DAY, #30 TAB Prov:FLY HUTCHINS MD 04/03/17 Hydrocodone/Acetaminophen ([place] 10-325 Tablet) 1 Each Tablet, 1 TAB PO Q6H Y for PAIN, #20 TAB Prov:DORAOSKARINASTOLOS A. DO 03/14/17 Prednisone* (Prednisone*) 20 Mg Tab, 20 MG PO DAILY for 30 Days, TAB Prov:DORAOSAPOSTOLOS A. DO 03/14/17 Prednisone* (Prednisone*) 20 Mg Tab, 60 MG PO DAILY for 5 Days, TAB Prov:LEKKOS,APOSTOLOS A. DO 03/14/17 Prednisone* (Prednisone*) 10 Mg Tab, 10 MG PO DAILY for 28 Days, TAB Prov:LAKIA SEYMOUR MD 02/21/17 Pantoprazole* (Pantoprazole*) 40 Mg Tablet.dr, 40 MG PO DAILY@06 for 14 Days Prov:LAKIA SEYMOUR MD 02/21/17 Oxycodone Hcl* (Oxycontin*) 10 Mg Tab.sr.12h, 10 MG PO BID for 14 Days Prov:LAKIA SEYMOUR MD 02/21/17 Amlodipine Besylate* (Amlodipine Besylate*) 5 Mg Tablet, 5 MG PO DAILY for 14 Days, TAB Prov:LAKIA SEYMOUR MD 02/21/17 Demeclocycline Hcl* (Declomycin*) 150 Mg Tablet, 150 MG PO BID for 14 Days, TAB Prov:LAKIA SEYMOUR MD 02/21/17 Hydromorphone Hcl* (Dilaudid*) 8 Mg Tablet, 8 MG PO TID Y for PAIN for 14 Days, TAB Prov:LAKIA SEYMOUR MD 02/21/17 Tramadol HCl (Tramadol HCl) 50 Mg Tablet, 50 MG PO Q6 Y for PAIN for 10 Days, # 15 TAB Prov:LAKIA SEYMOUR MD 02/21/17 Temazepam (Restoril) 15 Mg Cap, 15 MG PO HS Y for SLEEP for 10 Days, CAP Prov:LAKIA SEYMOUR MD 02/20/17 Enoxaparin Sodium* (Enoxaparin Sodium*) 40 Mg/0.4 Ml Syringe, 40 MG SC DAILY for 28 Days Prov:LAKIA SEYMOUR MD 02/20/17 Tramadol HCl (Tramadol HCl) 50 Mg Tablet, 50 MG PO Q4 Y for PAIN, #[address] or operate heavy machinery while taking this medication Prov:CORINA GOLDSTEIN PA-C 09/13/16 Hydrocodone Bit-Acetaminophen* ([place]*) 5-325 Mg Tab, 1 TAB PO Q6 Y for PAIN, # 7 TAB Prov:DINORA ARCOS 01/05/16 Reported Medications Prednisone* (Prednisone*) 10 Mg Tab, 10 MG PO DAILY, TAB 02/12/17 Salmeterol Xinaf/Fluticasone* (Advair 100/50 Diskus*) 1 Inh Inha 12/03/09 Lorazepam* (Ativan*) 0.5 Mg Tablet 12/03/09 Allergies Allergies: Coded Allergies: aspirin (Verified Allergy, Mild, 03/14/17) Penicillins (Verified Allergy, Unknown, 03/14/17) PMhx/Soc History of Surgery: Yes (left ovary and tubes removed) Anesthesia Reaction: No Hx Neurological Disorder: No Hx Respiratory Disorders: No Hx Cardiac Disorders: Yes (HTN) Hx Psychiatric Problems: No Hx Miscellaneous Medical Probl: Yes (lupus) Hx Alcohol Use: No Hx Substance Use: No Hx Tobacco Use: No Physical Exam Vitals Vital Signs Date Time Temp Pulse Resp B/P Pulse Ox O2 Delivery O2 Flow Rate FiO2 04/03/17 17:20 98.5 78 18 98/50 99 Physical Exam Const: [] Alert, no apparent distress. Head: Atraumatic Eyes: Normal Conjunctiva ENT: Normal External Ears, Nose and Mouth. Neck: Full range of motion..~ No meningismus. Resp: Clear to auscultation bilaterally Cardio: Regular rate and rhythm, no murmurs Abd: Soft, non tender, non distended. Normal bowel sounds Skin: No petechiae or rashes Back: No midline or flank tenderness Ext: No cyanosis, or edema Neur: Awake and alert Psych: Normal Mood and Affect Results 24 hrs Current Medications Medications (Trade) Dose Ordered Sig/Hector Route PRN Reason Start Time Stop Time Status Last Admin Dose Admin Dexamethasone (Decadron) 10 mg ONCE ONCE IM 04/03/17 18:30 04/03/17 18:31 Acetaminophen/ Hydrocodone Bitart ([place] (10/325)) 1 tab ONCE ONCE PO 04/03/17 18:30 04/03/17 18:31 Procedures/MDM Patient presents with acute on chronic pain in her back joints. Diagnosis of systemic lupus is some question given rheumatology reviewed during a recent hospitalization. Patient is not exhibiting any signs or symptoms to suggest serious systemic illness. Her primary complaint appears to be chronic pain. She is requesting a refill on prednisone as well as medicine for pain. She'll be given [place] 10 mg by mouth. And Decadron 10 mg IM as she has been out of prednisone for A week. She'll be resumed on prednisone 10 MG a day. Patient will referred to local [facility] and referred to registration for help with documentation of insurance and primary care resources through her insurance. The patient was stable with no new complaints during the ER course. Clinically, there is no current evidence to suggest meningitis, sepsis, acute abdomen, pneumonia, acute coronary syndrome, pulmonary embolism, or any other emergent condition appearing to require further evaluation or hospitalization. The patient should certainly return for any new or worsening symptoms per the aftercare instructions. They should otherwise follow-up with her primary care doctor for reevaluation this week. Departure Diagnosis: Primary Impression: Pain Additional Impression: Arthralgia Joint pain location: unspecified Qualified Code: M25.50 - Arthralgia, unspecified joint Condition: Stable Patient Instructions: Arthralgia Referrals: [facility] YOU HAVE RECEIVED A MEDICAL SCREENING EXAM AND THE RESULTS INDICATE THAT YOU DO NOT HAVE A CONDITION THAT REQUIRES URGENT TREATMENT IN THE EMERGENCY DEPARTMENT. FURTHER EVALUATION AND TREATMENT OF YOUR CONDITION CAN WAIT UNTIL YOU ARE SEEN IN YOUR DOCTORS OFFICE WITHIN THE NEXT 1-2 DAYS. IT IS YOUR RESPONSIBILITY TO MAKE AN APPOINTMENT FOR FOLOW-UP CARE. IF YOU HAVE A PRIMARY DOCTOR --you should call your primary doctor and schedule an appointment IF YOU DO NOT HAVE A PRIMARY DOCTOR YOU CAN CALL OUR PHYSICIAN REFERRAL HOTLINE AT IF YOU CAN NOT AFFORD TO SEE A PHYSICIAN YOU CAN CHOSE FROM THE FOLLOWING [facility] [address] [facility]. [facility] [address] [facility] [facility] [address] [facility] [facility] [address] [facility] [facility] [address] [facility]. [facility] [address] Additional Instructions: See primary doctor for further evaluation and management. FLY HUTCHINS MD April 03, 2017 18:28
[2017-04-03] MEDS ORDERED: DEXAMETHASONE 10 MG/ML 1 ML INJ IM ONE (18:30)
[2017-04-03] MEDS ORDERED: HYDROCODONE/APAP (10/325) TAB PO ONE (18:30)
== END 2017-04-03 18:40 | disposition home or self-care (01) ==
LOC: FTE 17:17
DX: M54.5 Low back pain (principal); M25.50 Pain in unspecified joint; I10 Essential (primary) hypertension; E03.9 Hypothyroidism, unspecified
CPT/HCPCS: 96372; J1100; Z7502; Z7610

== ENCOUNTER 2017-07-30 20:35 | Emergency (ER) | payer OTHER ==
[~2017-07-30] VITALS: Wt 56.5 kg
[2017-07-30] MEDS ORDERED: ONDANSETRON (ODT) 4 MG TAB ODT STA (22:25)
[2017-07-30] MEDS ORDERED: HYDROCODONE/APAP (5/325) TAB PO ONE (22:30)
--- NOTE | 2017-07-31 00:41 | RADRPT ---
PROCEDURE: XR Knee. CLINICAL INDICATION: 52 years of age, female. Left knee pain. TECHNIQUE: Three views of the left knee. COMPARISON: None available. FINDINGS: Bones are osteopenic Negative for evidence of acute fracture. Normal alignment. Joint spaces are preserved without evidence of arthritis. Negative for evidence of a joint effusion. Negative for significant soft tissue swelling. IMPRESSION: Negative for evidence of acute fracture or dislocation of the left knee. Negative for evidence of arthritis. Osteopenia RPTAT: HCTS Physician Evelio Date Time Electronically viewed and signed by Nivia Alvares Physician on 07/31/2017 00:41 CS/
[2017-07-31] MEDS ORDERED: HYDR-906 PO (01:00)
[2017-07-31] MEDS ORDERED: NAPR-260 PO (01:00)
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
== END 2017-07-31 01:31 | disposition home or self-care (01) ==
LOC: FTE 20:35
DX: M25.562 Pain in left knee (principal); I10 Essential (primary) hypertension
CPT/HCPCS: 29505; 73562; Z7502; Z7610

== ENCOUNTER 2018-10-04 16:46 | Inpatient (IN) | END 2018-10-10 18:30 | DRG 184 ==

== ENCOUNTER 2018-10-23 06:52 | Emergency (ER) | END 2018-10-23 10:17 ==